=== PATIENT | female | born 1950 | race Caucasian/White ===

== ENCOUNTER → 2017-02-22 | Outpatient (CLI) | payer OTHER, MEDICARE ==
[~2017-02-22] MED LIST: ACETAMINOPHEN-1 EAC1 PO; ASPIR 8181 MG PO; CALCIUM CITRAT1 EA14 PO; CENTRUM SILVER1 EAC4 PO; EPIPEN0.3 MG/0.1 IJ; FISH OIL 1,001000 M2 PO; HYDROCODON-ACE1 EAC7 PO; LEXAPRO20 MG PO; LODINE400 M1 PO; MEDROLDOSEPACK PO; MOBIC15 MG PO; NEURONTIN 300300 M1 PO; ONDANSETRON HCL4 M2 PO; SIMVASTATIN40 MG PO; WELLBUTRIN XL150 MG PO; XANAX 0.5 MG0.5 MG PO
--- NOTE | 2017-02-23 08:10 | PAINCON ---
[address] [address] PAIN MANAGEMENT CONSULTATION Name: FLEX CORNELL Room: [facility] LAURIE Komal#: [id number] Admission: 02/22/17 Attend Phys: Alise Matos MD Discharge: Date of : 52 Report #: [id number] THIS REPORT FOR: //name// CC: Alise Shelley MD DATE OF SERVICE: 02/22/2017 FOLLOWUP COMPLAINT: "Here to get another refill of medication." FOLLOWUP HISTORY: The patient is a 66-year-old female who has been seen in the pain clinic because of lumbar radiculopathy. She has undergone epidural steroid injections and gleaned benefits from these. She returns today indicating that she has had some worsening of her pain. The weather pattern has changed. Temperature outside is in the 20s. She has found hydrocodone to be helpful. She takes this medication when she goes to work. She is about to undergo another series of work days. She would like to have her medications renewed. She did note that the last injection was helpful, but still has pain and finds that she is having some discomfort. She rates her discomfort today as a 5/10. It involves the lower portion of her back. It radiates down into the right side. She did not feel that the last injection was as helpful as the other, but still feels that she overall has greater than 50% improvement. She usually takes about 3 of the 5 mg hydrocodone tablets per day. She now has four tablets and will start work tomorrow. She is aware that opioid medications can be problematic. She is a nurse. She states that she has taken her medications as prescribed. PHYSICAL EXAMINATION: Blood pressure is 158/88, pulse 87, respiratory rate 16, room air saturation 94%. Height 5 feet 4 inches, weight 191 pounds, BMI is 32, temperature 98.6. The patient has not fallen since we saw her last. She does complain of some pain and discomfort in the lower portion of her back in the L4-L5 distribution with pain radiating down into the right leg and rating at 8/10. HEENT: Unremarkable. NECK: Nontender. CHEST: Clear. Nonlabored breathing. ABDOMEN: Protuberant. EXTREMITIES: He complains of some numbness and tingling involving the L4-L5 distribution. IMPRESSION: 1. Lumbar radiculopathy involving the lower back in the right at the L4-L5 distribution today. The patient continues to note some improvement, but still is having some numbness and tingling in the affected area. 2. Degenerative joint disease with ifbr-vf-qyan pain [place] [address] PAIN MANAGEMENT CONSULTATION Name: FLEX CORNELL Room: [facility]#: [id number] Admission: 02/22/17 Attend Phys: Alise Matos MD Discharge: Date of : 52 Report #: [id number] 3. Use of hydrocodone to help control pain. The patient would like to have the hydrocodone prescription refilled. We discussed the use of these medications for pain control. 4. Hyperlipidemia. RECOMMENDATIONS: We discussed the treatment of chronic pain with the patient. We will continue with her hydrocodone. A script for this medication has been written. She will also be given a Medrol Dosepak to help with the pain. She has not taken these in the past. Hopefully, this would help decrease the pain and discomfort, which she is experiencing at this juncture. We would like to thank you for letting us participate in her care. We hope she continues to improve. <ELECTRONICALLY SIGNED> By: Alise Matos MD 02/23/17 0810 1326 [id number]. Mynor Matos MD /[facility]
== END ==
LOC: M.PC 10:29
DX: M54.16 Radiculopathy, lumbar region (principal); M17.11 Unilateral primary osteoarthritis, right knee; R20.0 Anesthesia of skin; R20.2 Paresthesia of skin; E78.5 Hyperlipidemia, unspecified

== ENCOUNTER → 2017-04-05 | Outpatient (CLI) | payer OTHER, MEDICARE ==
--- NOTE | 2017-05-02 08:24 | PAINCON ---
[address] [address] PAIN MANAGEMENT CONSULTATION Name: FLEX CORNELL Room: [facility] M.Frantz.#: [id number] Admission: 04/05/17 Attend Phys: Alise Matos MD Discharge: Date of : 52 Report #: [id number] THIS REPORT FOR: //name// CC: Alise Shelley MD DATE OF SERVICE: 04/05/2017 FOLLOWUP COMPLAINT: Here for medication renewal. FOLLOWUP HISTORY: The patient is a 66-year-old female who has been followed in the pain clinic because of lumbar radiculopathy. Epidural steroid injections have been beneficial. She returns today indicating that her pain continues to have improve from the last injection. She in need of renewal of her hydrocodone medications and continues to work long days. She denies any complication from the medications. She is clear in her mentation. She feels that this medication helps her to remain gainfully employed. She is not having any withdrawal symptoms. She is aware of the possible complications of opioid medications, which include addiction and tolerance. She does not feel that any either of these things are going on at this juncture. She has taken her medications as prescribed. ALLERGIES: AVELOX. MEDICATIONS: Aspirin 81 mg chewable, Wellbutrin 150 mg b.i.d., calcium, vitamin D, fish oil, EpiPen auto inject p.r.n., Lexapro 20 mg, etodolac 400 mg b.i.d., gabapentin 300 mg b.i.d., hydrocodone 5/325 one p.o. every 6 hours p.r.n. pain, multivitamin, Centrum, simvastatin 40 mg. PAIN ASSESSMENT: 1. The patient is not being seen for osteoarthritis or rheumatoid arthritis. 2. Height 5 feet 4 inches, weight 189 pounds, BMI is 32.6. Blood pressure 147/82, pulse 79, respiratory rate 16, room air saturation 94%, temperature 98.2. Pain score 4/10. 3. Fall risk. The patient did fall/stumble a little bit because she missed a step, but has no problem with balance or walking. 4. The patient is not on a blood thinner. 5. The patient is not being treated for hypertension. 6. The patient is on opioid and has signed a contract with the pain clinic. She only gets her medications here. 7. Functional assessment tool. 8. Risk assessment tool. 9. Recreational drug use. Never tobacco. Does not smoke, alcoholic beverages does not imbibe [place] [address] PAIN MANAGEMENT CONSULTATION Name: FLEX CORNELL Room: [facility].#: [id number] Admission: 04/05/17 Attend Phys: Alise Matos MD Discharge: Date of : 52 Report #: [id number] PHYSICAL EXAMINATION: GENERAL: The patient is a well-developed female in no distress, appears her stated age, is oriented x 3 with move, communication affect is appropriate. HEAD, EARS, EYES, NOSE AND THROAT: Without trauma. Extraocular eye muscles intact. No nasal complaints. Hearing within normal limits. NECK: No JVD or bruits. LUNGS: Clear to auscultation. HEART: Regular rate. ABDOMEN: Nontender. MUSCULOSKELETAL: Normal alignment. No scoliosis, kyphosis, lordosis. EXTREMITIES: Lower extremities, the patient has some discomfort in the low back area and L4-L5 distribution, but much improved. Has some low back discomfort. Negative straight leg raise. IMPRESSION: 1. History of lumbar radiculopathy and lower back area with the L4-L5 distribution, improved after last injection. The patient finds that her current medication regimen of gabapentin and hydrocodone are helpful. 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 2. Degenerative joint disease with kuhx-bf-jocl pain involving her right knee. 3. Continued use of hydrocodone to help control pain and using it as prescribed with no mental changes or problems. 4. Hyperlipidemia. RECOMMENDATIONS: We discussed treatment options with the patient. We will continue with her hydrocodone and gabapentin medication. She finds that these medications continue to be beneficial. She continues to work for long periods of time. She would like to continue with this medication if had no complications. She and I discussed the possible complications, which are in the news and they include addiction and tolerance. The patient states that she is not suffering from any of these and her medications are working reasonably well. She does have her pill bottle for the hydrocodone and there are about 10-15 tablets still available, scripts for her hydrocodone and gabapentin will rewritten. <ELECTRONICALLY SIGNED> By: Alise Matos MD 05/02/17 0824 1245 1913N. Mynor Matos MD /sol[facility]
== END ==
LOC: M.PC 01:53
DX: M54.16 Radiculopathy, lumbar region (principal); M17.11 Unilateral primary osteoarthritis, right knee; E78.5 Hyperlipidemia, unspecified

== ENCOUNTER → 2017-05-17 | Outpatient (CLI) | payer OTHER, MEDICARE ==
--- NOTE | 2017-05-30 08:21 | PAINCON ---
[address] [address] PAIN MANAGEMENT CONSULTATION Name: FLEX CORNELL Room: [facility] CHAVO Komal#: [id number] Admission: 05/17/17 Attend Phys: Alise Matos MD Discharge: Date of : 51 Report #: [id number] THIS REPORT FOR: //name// CC: Alise Shelley MD DATE OF SERVICE: 05/17/2017 FOLLOWUP COMPLAINT: Here for medication renewal. FOLLOWUP HISTORY: The patient is a 66-year-old female who has been seen in the pain clinic because of lumbar radiculopathy. She has undergone epidural steroid injections in the past. She has gleaned benefits from these. At this juncture, she continues to have some discomfort and rates it as a 2/10. She did noted an increased uptake in her pain and discomfort for a few days after the epidural at the last visit. It then became less problematic and decreased too. She does work and notes if that can be problematic for her pain. 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 Sometimes she has to engage with the client help. That can make her pain more problematic. She denies any worsening of her pain since the last injection, which has been long lasting. Bowel and bladder function are normal. Overall, things are going reasonably well and she feels that the hydrocodone and gabapentin continue to be beneficial. She would like to have these medications renewed. ALLERGIES: AVELOX. MEDICATIONS: Aspirin 81 mg chewable, Wellbutrin 150 mg b.i.d., calcium, vitamin D, fish oil, EpiPen auto injector p.r.n., Lexapro 20 mg, etodolac 400 mg b.i.d., gabapentin 300 mg b.i.d., hydrocodone 5/325 one p.o. q. 6 hours p.r.n. pain, multivitamin, Centrum, simvastatin 40 mg. PAIN ASSESSMENT: 1. The patient is not being treated for osteoarthritis or rheumatoid arthritis. 2. Height 5 feet 4 inches, weight 187 pounds, BMI is 32. 3. Blood pressure 146/77, heart rate 73, respiratory rate 16, room air saturation is 97%, temperature 98 degrees. 4. Fall risk. The patient has not fallen in the last 3 months. 5. The patient is not on a blood thinner. 6. The patient is not being treated for hypertension. 7. The patient is on opioid therapy and has been receiving her medications who has contract to the pain clinic. 8. Functional assessment tool. 9. Risk assessment tool. 10. Recreational drug use. The patient denies use of recreational drugs. 11. Tobacco: The patient [place] [address] PAIN MANAGEMENT CONSULTATION Name: FLEX CORNELL Room: [facility]#: [id number] Admission: 05/17/17 Attend Phys: Alise Matos MD Discharge: Date of : 51 Report #: [id number] 12. Alcoholic beverages. The patient denies using frequent alcoholic beverages. 13. Osteoarthritis involving the right knee. PHYSICAL EXAMINATION: GENERAL: The patient is a well-developed female in no distress. Appears her stated age. She is alert and oriented x 3. Communication is effectively. HEENT: Normocephalic, atraumatic. Extraocular eye muscles intact. Hearing is within normal limits. Sclerae is nonicteric. NECK: No JVD or bruits. LUNGS: Clear to auscultation. HEART: Regular rate. ABDOMEN: Nontender. MUSCULOSKELETAL: Shows normal alignment. No history of scoliosis, kyphosis or lordosis. EXTREMITIES: No muscular problems in the upper extremities. Strength is judged to be 5/5 with symmetry, lower extremities. History of L4-L5 lumbar distribution and pain. IMPRESSION: 1. History of lumbar radiculopathy and lower back pain in the L4-L5 distribution, improved with epidural steroid injections. 2. Degenerative joint disease with aaln-km-vryx involvement in her right knee. 3. Continued use of hydrocodone to control pain with no mental changes or problems with mentation. 4. Hyperlipidemia. RECOMMENDATIONS: We discussed treatment options with the patient. At this juncture, we will continue with her current medical regimen. She did note some increased pain and discomfort after the last epidural steroid injection. This was a couple of days after the procedure was performed. There is no discomfort during the procedure nor these couple of days afterwards. She is not sure exactly why she noted an uptake in her pain and discomfort. It did revert to normal level of 2/10 after a number of days. She would like to continue with her current medical regimen of hydrocodone, gabapentin and Lodine. She will call us if she has any problem with her medications. We would like to thank you for letting us participate in her care. We hope she continues to improve. <ELECTRONICALLY SIGNED> By: Alise Matos MD 05/30/17 0821 1223 [id number]. Mynor Matos MD /[facility]
== END ==
LOC: M.PC 03:51
DX: M54.16 Radiculopathy, lumbar region (principal); M17.11 Unilateral primary osteoarthritis, right knee; E78.5 Hyperlipidemia, unspecified; Z79.891 Long term (current) use of opiate analgesic

== ENCOUNTER → 2017-06-28 | Outpatient (CLI) | payer OTHER, MEDICARE ==
--- NOTE | 2017-07-06 09:09 | PAINCON ---
[address] [address] PAIN MANAGEMENT CONSULTATION Name: FLEX CORNELL Room: [facility] CHAVO Sauceda#: [id number] Admission: 06/28/17 Attend Phys: Alise Matos MD Discharge: Date of : 51 Report #: [id number] THIS REPORT FOR: //name// CC: Alise Shelley MD DATE OF SERVICE: 06/28/2017 FOLLOWUP COMPLAINT: Still having some quite a bit of pain. It has gotten worse with the weather this spring. FOLLOWUP HISTORY: The patient is a 66-year-old female. 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 She has undergone epidural steroid injection in the past and gleaned benefits from these. At this juncture, she returns for medication renewal. Feels that her neck pain is continuing to ramp up somewhat. She is contemplating another epidural steroid injection. She rates her pain as a 4/10 today. She is noticing some numbness to the left hip, thigh and notes that this waxes and wanes according to the weather. She feels that the hydrocodone, gabapentin and Tylenol Extra Strength are helpful. She continues to be gainfully employed. Feels that her medications unable her to continue to be functional. She has had no problems with mentation. Feels that overall the medications are beneficial. She would like to proceed with another epidural steroid injection in the near future. We will petition her insurance company for that option. ALLERGIES: AVELOX. MEDICATIONS: Aspirin 81 mg chewable, Wellbutrin 150 mg b.i.d., calcium, vitamin D, fish oil, EpiPen auto injector p.r.n., Lexapro 20 mg, Etodolac 400 mg b.i.d., gabapentin 300 mg b.i.d., hydrocodone 5/325 one p.o. q. 6 hours p.r.n., multivitamin, Centrum, simvastatin 40 mg. PAIN CLINIC ASSESSMENT: 1. The patient is not being treated for rheumatoid arthritis has some osteoarthritic changes in her lower back with pain. 2. Height 5 feet 4 inches, weight 184 pounds, BMI is 31. 3. Pain score 4/10. 4. Fall risk. The patient has not fallen in the last 3 months. 5. Blood thinner. The patient is not on a blood thinner. 6. Hypertension. The patient is not being treated for hypertension. 7. Opioid therapy. The patient is receiving opioid medications from the pain clinic. Gets her medication from one source. 8. Functional assessment tool. 9. Recreational assessment tool. 10. Recreational drug use. The patient [place] [address] PAIN MANAGEMENT CONSULTATION Name: FLEX CORNELL Room: [facility]#: [id number] Admission: 06/28/17 Attend Phys: Alise Matos MD Discharge: Date of : 51 Report #: [id number] 11. Tobacco: The patient has never smoked. 12. Alcoholic beverages. The patient denies frequent use of alcoholic beverages. 13. Osteoarthritis involving her right knee. PHYSICAL EXAMINATION: GENERAL: The patient is a well-developed, well-nourished white female. She appears her stated age. She is alert and oriented x 3. Her affect is appropriate. Speech is fluent. HEENT: Extraocular eye muscles intact. Normocephalic, atraumatic. Sclerae nonicteric. Hearing is within normal limits. The Mucous membranes are moist. Lungs are clear to auscultation without rhonchi or wheezing. HEART: Regular rate. S1, S2. ABDOMEN: Nontender. MUSCULOSKELETAL: Alignment is within normal limits without significant scoliosis, kyphosis or lordosis. Lower extremity, the patient has pain and discomfort in the lower extremity with pain and discomfort radiating down in the L4-L5 area with sensory changes of numbness, tingling and weakness. IMPRESSION: 1. History of lumbar radiculopathy and lower lumbar area with sensory changes with numbness, weakness and tenderness involving the L4-L5 nerve root distribution. 2. Degenerative joint disease with eqik-li-sqyy involvement on the right knee. 3. Continued use of hydrocodone to control pain without any mental health changes or mentation problems. 4. Hyperlipidemia. RECOMMENDATIONS: We discussed treatment options with the patient. At this juncture, we will continue with her current medications. A script for hydrocodone 5 mg one p.o. t.i.d. has been written. The patient does continue to have some pain and discomfort with sensory changes in the lower extremity on the L4-L5 distribution. We will proceed with a Medrol Dosepak to take in the interim. The patient will return to the pain clinic at which time she will then undergo an epidural steroid injection to help improve her pain condition. She noticed greater than 50% improvement when she does have the lumbar epidural steroid injections. <ELECTRONICALLY SIGNED> By: Alise Matos MD 07/06/17 0909 1316 1902N. Mynor Matos MD /PMT
== END ==
LOC: M.PC 02:28
DX: M54.16 Radiculopathy, lumbar region (principal); M17.11 Unilateral primary osteoarthritis, right knee; E78.5 Hyperlipidemia, unspecified; Z88.8 Allergy status to other drugs, medicaments and biological substances

== ENCOUNTER → 2017-08-09 | Outpatient (CLI) | payer OTHER, MEDICARE ==
--- NOTE | 2017-08-23 15:18 | PAINCON ---
[facility] [address] [place] [address] PAIN MANAGEMENT CONSULTATION Name: FLEX CORNELL Room: [facility] CHAVO RodriguezTirso#: [id number] Admission: 08/09/17 Attend Phys: Alise Matos MD Discharge: Date of : 51 Report #: [id number] THIS REPORT FOR: //name// CC: Alise Shelley DATE OF SERVICE: 08/09/2017 FOLLOWUP COMPLAINT: Had some increased pain in the back and down into my leg. Had been working 10-hour days and that really makes the pain worse. 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 She has undergone epidural steroid injections. She finds that hydrocodone can be helpful. She has been working longer hours. With prolonged hours. The patient notes increased pain and discomfort down into her legs. She has been sick for the past 2-1/2 weeks. She has been treated with antibiotics. She is off of them at this juncture. Did have a Medrol Dosepak, but did not feel that is significantly improved the pain and discomfort she was experiencing in her back. At this juncture, she would like to proceed with another epidural steroid injection. Finds that [place] continues to be helpful. Continues with the etodolac b.i.d. to help with the pain. Also, feels that the gabapentin is helpful. Notes worsening of pain with walking, sitting, standing and tries to avoid lifting and bending. She has failed epidural steroid injections to be helpful. She is not having any problems with her mentation with use of these medications. MEDICATIONS: Aspirin 81 mg, Wellbutrin 150 mg b.i.d., calcium, vitamin D, fish oil, EpiPen auto injector her p.r.n., Lexapro 20 mg, etodolac 400 mg b.i.d., gabapentin 300 mg b.i.d., hydrocodone 5/325 one p.o. q. 6 hours p.r.n., multivitamin, Centrum, simvastatin,,, and 40 mg. PAIN CLINIC ASSESSMENT: 1. The patient is not being treated for rheumatoid arthritis, but does have arthritic changes in the lower back. 2. Height 5 feet 4 inches, weight 180 pounds, BMI is 31. Pain score 4, height is 5/10. 3. Fall risk. The patient has not fallen in the last 3 months. 4. Blood thinner. The patient is not on a blood thinning medication. 5. Opioid therapy. The patient receives her medications from the pain clinic. She only gets it from 1 source. 6. Functional assessment tool. 7. Recreational assessment tool. 8. Recreational drug use. The patient denies use of recreational drugs. 9. Tobacco: The patient has never smoked. 10. Alcoholic beverages. The patient denies [place] [address] PAIN MANAGEMENT CONSULTATION Name: FLEX CORNELL Room: [facility] CHAVO Sauceda#: [id number] Admission: 08/09/17 Attend Phys: Alise Matos MD Discharge: Date of : 52 Report #: [id number] 11. Osteoarthritis involving her right knee. PHYSICAL EXAMINATION: GENERAL: The patient is a well-developed white female, appears her stated age. She is alert and oriented x 3. Her speech is fluent. Her affect is appropriate. HEENT: Extraocular eye muscles intact. Normocephalic, atraumatic. Sclerae nonicteric. Hearing is within normal limits. HEART: Regular rate. S1, S2. LUNGS: Clear. ABDOMEN: Nontender. MUSCULOSKELETAL: Alignment within normal limits without significant scoliosis, kyphosis, lordosis. The patient has pain and discomfort in lower portion of her back with pain is radiating down into the right and left low back area in the L4-L5 distribution. IMPRESSION: 1. History of lumbar radiculopathy in the lower back with sensory changes, numbness, tingling and weakness involving the L4-L5 nerve roots, left and right. 2. Degenerative joint disease with olqh-wd-[id number] involvement of the right knee. Continued use of hydrocodone to control pain without mental changes or mental problems. 2. Hyperlipidemia. 3. Bronchitis -- finished up antibiotics. RECOMMENDATIONS: We discussed treatment options with the patient. Risks and benefits of an epidural steroid injection were again reviewed. The patient notes that she gets "gleans benefit from these. At this juncture, she feels that her pain has continued to improve. She would like to proceed with an epidural steroid injection. States that she is somewhat unhappy that she has to take pain medications to help control her pain, but she must. She has had no complications with their use. Able to think clearly with their use. has agreed to undergo an epidural steroid injection at the L4-L5 area. She has had this performed before. Noted some pain and discomfort and increased discomfort about 3-4 days after the last injection. There was no discomfort in the area of. She just noted that her pain level increased. Hopefully, this will not happen at this juncture, but she would like to proceed with an injection today. PROCEDURE NOTE: We have discussed the treatment with the patient. Possible complications of the procedure were known to the patient and they include infection, increased muscle soreness, headache, bleeding, paresis, worsening of pain, spinal headache. She elects to proceed. PROCEDURE NOTE: The patient was helped on the examination table. She was placed in the appropriate position. Fluoroscopy was used to identify the L4-L5 interspace. This area had been sterilely prepped [place] [address] PAIN MANAGEMENT CONSULTATION Name: JIMMYEUGENEFLEX ANTELMO Room: [facility]#: [id number] Admission: 08/09/17 Attend Phys: Alise Matos MD Discharge: Date of : 52 Report #: [id number] with 0.25% bupivacaine. A 17-gauge Tuohy with loss of resistance technique was used to advance into the midline area using fluoroscopy in anterior, posterior and lateral. This area had been infiltrated with 0.25% bupivacaine. A 17-gauge Tuohy was placed. A total of 80 mg Depo-Medrol, 40 mg triamcinolone was injected. The patient tolerated the procedure well. A total of 13 seconds fluoro time was used. The patient's pain decreased from 5-0 at the time of discharge. She will follow up in the future as needed. A script for her medications were provided for hydrocodone 5 mg 1 p.o. t.i.d. Total of 90 tablets dispensed. <ELECTRONICALLY SIGNED> By: Alise Matos MD 08/23/17 1518 1607 1938N. Mynor Matos MD /[facility]
== END | disposition home or self-care (01) ==
LOC: M.PC 01:22
DX: M54.16 Radiculopathy, lumbar region (principal); G89.29 Other chronic pain; M17.11 Unilateral primary osteoarthritis, right knee; E78.5 Hyperlipidemia, unspecified; J40 Bronchitis, not specified as acute or chronic; Z79.891 Long term (current) use of opiate analgesic; Z98.890 Other specified postprocedural states; Z79.82 Long term (current) use of aspirin; Z88.8 Allergy status to other drugs, medicaments and biological substances; Z79.899 Other long term (current) drug therapy

== ENCOUNTER → 2017-09-20 | Outpatient (CLI) | payer OTHER, MEDICARE ==
--- NOTE | 2017-09-26 14:16 | PAINCON ---
[address] [address] PAIN MANAGEMENT CONSULTATION Name: FLEX CORNELL Room: [facility] LAURIE Komal#: [id number] Admission: 09/20/17 Attend Phys: Alise Matos MD Discharge: Date of : 52 Report #: [id number] THIS REPORT FOR: //name// CC: Alise Shelley DATE OF SERVICE: 09/20/2017 FOLLOWUP COMPLAINT: Here for medication renewal. Still had pain in spite of the last injection. FOLLOWUP HISTORY: The patient is a 66-year-old female who has a history of lumbar radiculopathy. She has undergone epidural steroid injections in the past and gleaned benefit from these. She returns today indicating that her pain still is somewhat problematic. She rates it as 4/10. She did not receive as much benefit from the last injection as she has in the past times. She rates her pain as 4/10 and would like to have her medications renewed. She had no complications from the procedure. No problem with her bowel or bladder function. Feels that her medications continue to be helpful. Feels her sensorium is clear. 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 She has not fallen since we saw her last. ALLERGIES: AVELOX. CURRENT MEDICATIONS: Aspirin 81 mg chewable, Wellbutrin 150 mg b.i.d., calcium, vitamin D, fish oil, EpiPen auto injector p.r.n., Lexapro 20 mg, etodolac 400 mg b.i.d., gabapentin 300 mg b.i.d., hydrocodone 5/325 one p.o. q.4-6h. p.r.n., multivitamin, Centrum, simvastatin. PAIN CLINIC ASSESSMENT: 1. The patient has not been treated for rheumatoid arthritis, has some osteoarthritic changes in her lower back. 2. Height 5 feet 4 inches, weight 183 pounds, BMI is 31.4. 3. Vital signs: Blood pressure 138/79, heart rate 77, respiratory rate 16, room air saturation 94%, temperature 98.4. 4. Pain intensity 06/05. 5. Fall risk. The patient has not fallen in the last 3 months. 6. Blood thinners. The patient is not on a blood thinning medication. 7. Hypertension. The patient is not being treated for hypertension. 8. Opioid therapy. The patient is receiving opioid medications from the pain clinic. Gets her medications for pain from one source. 9. Functional assessment tool. 10. Recreational assessment tool. 11. Recreational drug use. The patient denies use of recreational drugs. 12. Tobacco: The patient has never smoked. 13. Alcohol: The patient denies frequent [place] [address] PAIN MANAGEMENT CONSULTATION Name: FLEX CORNELL ANTELMO Room: [facility]#: [id number] Admission: 09/20/17 Attend Phys: Alise Matos MD Discharge: Date of : 52 Report #: [id number] PHYSICAL EXAMINATION: GENERAL: The patient is a well-developed, well-nourished white female. She appears her stated age. She is alert and oriented x 3. Her affect is appropriate. Speech is fluent. HEENT: Normocephalic, atraumatic. Extraocular eye muscles intact. Sclerae nonicteric. Hearing is within normal limits. Mucous membranes are moist. NECK: Without adenopathy or JVD. HEART: Regular rate. S1, S2. LUNGS: Clear to auscultation without rhonchi or wheezing. ABDOMEN: Nontender. MUSCULOSKELETAL: Within normal limits without significant scoliosis, kyphosis or lordosis. Lower extremity strength is judged to be 5/5 for the major muscle groups. The patient has some pain and discomfort with pain radiating down into the L4-L5 area with some sensory changes of numbness and tingling. IMPRESSION: 1. History of lumbar radiculopathy and lower lumbar area with sensory changes, numbness, tingling involving the L4-L5 area. 2. Degenerative joint disease with yjpb-uv-texx involvement of the right knee. 3. Chronic pain, continues to use hydrocodone. 4. Hyperlipidemia. RECOMMENDATIONS: We discussed treatment options with the patient. At this juncture, we will renew her medication. She declines an epidural steroid injection at this juncture. She may consider one in the future should her pain become more problematic. She finds that the hydrocodone, etodolac and gabapentin are helpful. We will renew these medications. The patient will follow up in the pain clinic as needed. A script for hydrocodone one tablet 5/325 p.o. q.4-6h., total of 90 tablets written, gabapentin 300 mg 1 p.o. t.i.d. has been dispensed. The patient will call us if she has any problems with her medications. <ELECTRONICALLY SIGNED> By: Alise Matos MD 09/26/17 1416 [id number]. Mnyor Matos MD /PMT
== END ==
LOC: M.PC 09-11 11:00
DX: M54.16 Radiculopathy, lumbar region (principal); M17.11 Unilateral primary osteoarthritis, right knee; E78.5 Hyperlipidemia, unspecified; G89.29 Other chronic pain; Z79.899 Other long term (current) drug therapy

== ENCOUNTER → 2017-11-01 | Outpatient (CLI) | payer OTHER, MEDICARE ==
--- NOTE | 2017-11-02 17:38 | PAINCON ---
[address] [address] PAIN MANAGEMENT CONSULTATION Name: FLEX CORNELL Room: [facility] LAURIE MichaelTirso#: [id number] Admission: 11/01/17 Attend Phys: Alise Matos MD Discharge: Date of : 52 Report #: [id number] THIS REPORT FOR: //name// CC: Alise Shelley DATE OF SERVICE: 11/01/2017 FOLLOWUP COMPLAINT: Here for medication renewal. The pain was really bad a couple of weeks ago. It has gotten a little bit better now. FOLLOWUP HISTORY: The patient is a 66-year-old female who has been followed in the pain clinic because of chronic pain secondary to lumbar radiculopathy. She noted about 2 weeks ago some worsening of her pain. She states the pain was severe. The pain was so bad she is almost went to the Emergency Room. This caused her to cry. Overall, things have started to improve somewhat. Rates her pain as 4-5 at this juncture. Denies any trauma, denies any new activities associated with the increased pain on a couple of weeks ago. Overall, things are going reasonably well. She has taken her medication as prescribed. Finds that she took etodolac, it may not be as effective as she would like. States that she has been taking this medication for quite some time. She is open to trying a new medication of an antiinflammatory in nature to note its efficacy. ALLERGIES: AVELOX. CURRENT MEDICATIONS: Aspirin 81 mg chewable, Wellbutrin 150 mg b.i.d., calcium, vitamin D, fish oil, EpiPen auto injector p.r.n., Lexapro 20 mg, etodolac 400 mg b.i.d., gabapentin 300 mg b.i.d., hydrocodone 5/325 every 4-6 hours, multivitamin, Centrum, simvastatin. PAIN CLINIC ASSESSMENT: 1. The patient is not being treated for rheumatoid arthritis, has some osteoarthritic changes in the lower back. 2. Height 5 feet 4 inches, weight 183 pounds, BMI is 31.5. 3. Vital signs: Blood pressure 148/75, heart rate 72, respiratory rate 16, room air saturation 97%, temperature 98.4. Pain intensity 5-610. 4. Fall risk. The patient has not fallen in the last 3 months. 5. Blood thinners. The patient is not on a blood thinning medication. 6. Hypertension. The patient is not being treated for hypertension. 7. Opioid therapy. The patient is receiving her medications only from one source, the pain clinic. 8. Functional assessment tool. 9. Recreational drug use. 10. Tobacco: The patient denies use of tobacco. 11. Alcohol: The patient [place] [address] PAIN MANAGEMENT CONSULTATION Name: FLEX CORNELL ANTELMO Room: [facility]#: [id number] Admission: 11/01/17 Attend Phys: Alise Matos MD Discharge: Date of : 51 Report #: [id number] PHYSICAL EXAMINATION: GENERAL: The patient is a well-developed, well-nourished white female. She appears her stated age. She is alert and oriented x 3. Her affect is appropriate. Speech is fluent. HEENT: Normocephalic, atraumatic. Extraocular eye muscles intact. Sclerae nonicteric. Mucous membranes is moist. Hearing is within normal limits. NECK: Without adenopathy or JVD. Good range of motion. HEART: Regular rate. S1, S2. LUNGS: Clear to auscultation without rhonchi or wheezing. ABDOMEN: Nontender. MUSCULOSKELETAL: Without significant scoliosis, kyphosis or lordosis. The patient has some pain and discomfort in the right lower portion of her back. Has muscle strength in the lower extremity, judged to be 5/5 for the major muscle groups. The patient has some pain and discomfort in the L4-L5 distribution. IMPRESSION: 1. History of lumbar radiculopathy, L4-L5 area with sensory changes, some increased pain over the last few weeks. 2. Degenerative joint disease, qjak-au-qhxi involvement on the right knee. 3. Chronic pain, continues to use hydrocodone. 4. Hyperlipidemia. RECOMMENDATIONS: We discussed treatment options with the patient. Risks and benefits of opioid medications were again discussed. Possible complications of these medications were discussed. They include possibility of decreased efficacy as well as decreased pain relief secondary to development of tolerance. At this juncture, she feels that things are going reasonably well. She would like to have her nonsteroidal change from etodolac. We will try Mobic 15 mg 1 p.o. daily and note its efficacy. We will also give the patient a Medrol Dosepak. She will take a few of the steroid tablets should her back becomes really problematic. She was unable to go to work a few days because of the pain, which was so great. We would like to thank you for letting us participate in her care. We hope she continues to improve. <ELECTRONICALLY SIGNED> By: Alise Matos MD 11/02/17 1738 [id number]. Mynor Matos MD /CARIN
== END ==
LOC: M.PC 04:38
DX: M54.16 Radiculopathy, lumbar region (principal); M17.11 Unilateral primary osteoarthritis, right knee; G89.29 Other chronic pain; E78.5 Hyperlipidemia, unspecified; Z79.899 Other long term (current) drug therapy

== ENCOUNTER → 2017-12-13 | Outpatient (CLI) | payer OTHER, MEDICARE ==
--- NOTE | 2018-01-09 16:08 | PAINCON ---
[address] [address] PAIN MANAGEMENT CONSULTATION Name: FLEX CORNELL Room: [facility] CHAVO Calvin.#: [id number] Admission: 12/13/17 Attend Phys: Alise Matos MD Discharge: Date of : 51 Report #: [id number] THIS REPORT FOR: //name// CC: Alise Shelley MD DATE OF SERVICE: 12/13/2017 CHIEF COMPLAINT: Here for medications and things are going okay, but I am still having some back pain. FOLLOWUP HISTORY: The patient is a 67-year-old female who has been followed in the pain clinic because of chronic pain involving her low back. She has undergone epidural steroid injections in the past. At this juncture, she feels that things are going reasonably well. She did try a Medrol Dosepak and felt that that was somewhat helpful. She now finds Mobic more beneficial as a nonsteroidal anti-inflammatory medication. She would like to have a 90-day prescription of this medication. She has changed and is no longer using the Lodine. She did notice an improvement in the Mobic that was not present while using the Lodine. She rates her pain as a 3-4. She has taken the medication as prescribed. She is not having any complications. She is able to think clearly with use of medications. She is not having any problems with the gabapentin. Takes her medications as prescribed. Keeps her medications in a guarded area. She overall feels that things are a bit better. ALLERGIES: AVELOX. CURRENT MEDICATIONS: Aspirin 81 mg, Wellbutrin 150 mg b.i.d., calcium, vitamin D, fish oil, EpiPen auto injector p.r.n., Lexapro 20 mg, Mobic 15 mg, gabapentin 300 mg b.i.d., hydrocodone 5/325 q.4-6 hours, multivitamin, Centrum, simvastatin. PAIN CLINIC ASSESSMENT: 1. The patient does have osteoarthritic changes with fwam-hu-njgt in her right knee. 2. Height 5 feet 4 inches, weight 183 pounds, BMI is 31.5. 3. Vital signs: Blood pressure 135/86, heart rate 84, respiratory rate 16, room air saturation 96%, temperature 98.4. 4. Pain intensity 3-4/10. 5. Fall history: The patient has not fallen in the last 3 months. 6. Blood thinner. The patient is not on a blood thinning medication. 7. Hypertension. The patient is not being treated for hypertension. 8. Opioid therapy. The patient receives her medications from 1 source, pain clinic. 9. Functional assessment too low [place] [address] PAIN MANAGEMENT CONSULTATION Name: FLEX CORNELL Room: [facility]#: [id number] Admission: 12/13/17 Attend Phys: Alise Matos MD Discharge: Date of : 51 Report #: [id number] 10. Recreational use. The patient denies recreational drug use. 11. Tobacco. The patient denies use of tobacco. 12. Alcohol: The patient denies use of alcohol. PHYSICAL EXAMINATION: GENERAL: The patient is a well-developed, well-nourished white female, appears her stated age. She is alert and oriented x 3. Her affect is appropriate. Speech is fluent. HEENT: Normocephalic, atraumatic. Extraocular muscles intact. Sclerae nonicteric. Mucous membranes are moist. Hearing is within normal limits. NECK: Without adenopathy or JVD. Good range of motion. HEART: Regular rate. S1, S2. LUNGS: Clear to auscultation without rhonchi or wheezing. ABDOMEN: Nontender. MUSCULOSKELETAL: Without significant scoliosis, kyphosis, or lordosis. The patient does have some pain in the lower portion of her back and in the right lower portion of her back. Muscle strength in the lower extremity, judged to be 5/5 for the major muscle groups. The patient has had a history of pain and discomfort with radicular pain in the L4-L5 distribution and less problematic today. ASSESSMENT: 1. History of lumbar radiculopathy, L4-L5 with sensory changes in the past, better at this juncture. 2. Degenerative joint disease, uguj-xq-ifdu involvement of the right knee. 3. Chronic pain. Continues to use hydrocodone. 4. Hyperlipidemia. RECOMMENDATIONS: We discussed treatment options with the patient. Risks and benefits of her medications were discussed. We explained that opioid medications can be helpful. Problems with opioid medications is one of tolerance. One can require more and more medication to get the same result. 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 States that she has taken her medication as prescribed. She finds that the Mobic is helpful, [place], remains beneficial, and gabapentin is helpful as well. She would like to have her medications renewed. A script for Mobic 90-day supply has been written. A script for gabapentin 90-day supply, and [place] has been rewritten for the patient as well. She will follow up in the future. We would like to thank you for letting us participate in her care. We hope she continues to improve. <ELECTRONICALLY SIGNED> By: Alise Matos MD 01/09/18 1608 [id number] [id number]. Mynor Matos MD /[facility]
== END ==
LOC: M.PC 05:28
DX: M54.16 Radiculopathy, lumbar region (principal); M17.11 Unilateral primary osteoarthritis, right knee; G89.29 Other chronic pain; E78.5 Hyperlipidemia, unspecified; Z79.899 Other long term (current) drug therapy

== ENCOUNTER → 2018-01-24 | Outpatient (CLI) | payer OTHER, MEDICARE ==
--- NOTE | ~2018-01-24 | PAINCON ---
[address] [address] PAIN MANAGEMENT CONSULTATION Name: FLEX CORNELL Room: [facility] M.Frantz.#: [id number] Admission: 01/24/18 Attend Phys: Alise Matos MD Discharge: Date of : 51 Report #: [id number] THIS REPORT FOR: //name// CC: Alise Shelley MD DATE OF SERVICE: 01/24/2018 FOLLOWUP HISTORY: The patient is a 67-year-old female who has been followed in the Pain Clinic because of chronic back pain. She has undergone epidural steroid injection in the past. She suffered a fall this winter. The patient states she was walking outside and before she knew it, she was looking up. Has had some increased pain on the right side, which is on the side in which she fell. Denied fracture or anything. Also, notes some increased discomfort on the left side as well. She rates her pain as a 7-8 at this juncture. Denies any change in bowel or bladder function. Feels overall that her medications are helpful. Declines a Medrol Dosepak at this juncture. Feels that the hydrocodone and meloxicam both continue to be efficacious and would like to continue their use. ALLERGIES: AVELOX. CURRENT MEDICATIONS: Aspirin 81 mg, Wellbutrin 150 mg b.i.d., calcium, vitamin D, fish oil, EpiPen auto injector p.r.n., Lexapro 20 mg, Mobic 15 mg, gabapentin 300 mg b.i.d., hydrocodone 5/325 one p.o. q.4-6h., multivitamin, Centrum, and simvastatin. PAIN CLINIC ASSESSMENT/PQRS: 1. The patient does have some osteoarthritic changes with itst-zg-ntng pain in her right knee. The patient is not being treated for rheumatoid arthritis. 2. Height 5 feet 4 inches, weight 182 pounds, BMI is 31. 3. Vital signs: Blood pressure 147/90, heart rate 76, respiratory rate 18, room air saturation 94%, and temperature 98.4. 4. Pain intensity, 7-8/10, up from the usual 3-4 since the patient fell. 5. Fall history: The patient fell on the ice few days ago. 6. Blood thinner. The patient is not on a blood thinning medication. 7. Hypertension. The patient is not being treated for hypertension. 8. Opioid therapy greater than 6 weeks. The patient receives her medications from one source, the Pain Clinic. 9. Recreational drug use. The patient denies use of recreational drugs. 10. Tobacco: The patient denies use of tobacco. 11. Alcohol: The patient denies use of alcohol. PHYSICAL EXAMINATION: GENERAL: The patient is a well-developed, well-[place] [address] PAIN MANAGEMENT CONSULTATION Name: JIMMYFLEX KNIGHT ANTELMO [id number] Admission: 01/24/18 Attend Phys: Alise Matos MD Discharge: Date of : 52 Report #: [id number] her stated age. She is alert and oriented x 3. Her affect is appropriate. Speech is fluent. HEENT: Normocephalic and atraumatic. Extraocular eye muscles intact. Sclerae nonicteric. Mucous membranes are moist. NECK: Without adenopathy or JVD. Good range of motion. HEART: Regular rate. S1, S2. LUNGS: Clear to auscultation without rhonchi or rales. ABDOMEN: Nontender. MUSCULOSKELETAL: Without significant scoliosis, kyphosis or lordosis. The patient has some pain and discomfort on the right side and low back area, which she fell on the ice. Also notes some increased pain in the left hip area. Muscle strength in the upper extremity judged to be 5/5 for the major muscle groups. Muscle strength in the lower extremities 5-/5 with some pain and discomfort in the left hip area, in the L4-L5 area as well. IMPRESSION: 1. Lumbar radiculopathy, L4-L5 with sensory changes in the past and with improvement with epidural steroid injection in the past. 2. Degenerative joint disease, yokb-db-ontl involvement of the right knee. 3. Chronic pain. 4. Continued use of hydrocodone for pain. 5. Hyperlipidemia. RECOMMENDATIONS: We discussed treatment options with the patient. We will continue with her current medications of gabapentin 300 mg t.i.d., Mobic 15 mg daily, hydrocodone 5/325 one q.4-6h. p.r.n. pain. A total of 2 months of medication have been written. The patient will continue with her medications. She will call us if she should need. She was given the option of trying a Medrol Dosepak to help with the pain and discomfort as well as soreness. At this juncture, she declines it; might consider in the future. A script for her medications have been written. She will call us if she has any concerns. We would like to thank you for letting us participate in her care. We hope she continues to improve. By: [id number]. Mynor Matos MD /nt
== END ==
LOC: M.PC 03:46
DX: M54.16 Radiculopathy, lumbar region (principal); M17.11 Unilateral primary osteoarthritis, right knee; E78.5 Hyperlipidemia, unspecified; Z79.899 Other long term (current) drug therapy; W00.0XXD Fall on same level due to ice and snow, subsequent encounter

== ENCOUNTER → 2018-03-07 | Outpatient (CLI) | payer OTHER, MEDICARE ==
--- NOTE | ~2018-03-07 | PAINCON ---
[address] [address] PAIN MANAGEMENT CONSULTATION Name: FLEX CORNELL Room: [facility] LAURIE Komal#: [id number] Admission: 03/07/18 Attend Phys: Alise Matos MD Discharge: Date of : 52 Report #: [id number] THIS REPORT FOR: //name// CC: Dr. Leni Shelley DATE OF SERVICE: 03/07/2018 CHIEF COMPLAINT: Low back pain with pain down the legs. 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 She is contemplating her next move. At this juncture, she might consider working in the school system. She is not sure what she would like to do at this juncture. She has pain and discomfort, which radiates down into her legs. She has had epidural steroid injections and found benefit from these. At this juncture, she feels that her pain is working reasonably well. Rates her pain as a 3-4/10. Denies any new problems. Feels that the hydrocodone and Meloxicam continued to be efficacious. She has returned today for renewal of her medications. ALLERGIES: AVELOX. CURRENT MEDICATIONS: Aspirin 81 mg, Wellbutrin 150 mg b.i.d., calcium, vitamin D, fish oil, EpiPen auto injector p.r.n., Lexapro 20 mg, Mobic 15 mg, gabapentin 300 mg, hydrocodone 5/325 one p.o. q.4-6 hours, multivitamins, Centrum, simvastatin. PAIN CLINIC ASSESSMENT/PQRS: 1. The patient does have some arthritic changes with kqwl-vd-icjw pain in her right knee. Also, has some pain in the low back area. The patient is not being treated for rheumatoid arthritis. 2. Height 5 feet 4 inches, weight 180 pounds, BMI is 31. 3. Vital signs: Blood pressure 125/76, heart rate 78, respiratory rate 16, room air saturation 96%, temperature 98.7. 4. Pain intensity is 4-5/10 5. Fall history: The patient has not fallen in the last 3 months. 6. Blood thinner. The patient is not on a blood thinning medication. 7. Hypertension. The patient has not been treated for hypertension. 8. Opioid greater than 6 weeks. The patient receives her medications from one source pain clinic. 9. Risk assessment tool, low for opioid use. 10. Functional assessment tool. 11. Recreational drug use. The patient denies use of recreational drugs. 12. Tobacco: The [place] [address] PAIN MANAGEMENT CONSULTATION Name: JIMMYEUGENEFLEX RODRIGES [facility] [id number] Admission: 03/07/18 Attend Phys: Alise Matos MD Discharge: Date of : 52 Report #: [id number] 13. Alcohol: The patient denies use of alcoholic beverages. PHYSICAL EXAMINATION: GENERAL: The patient is a well-developed, well-nourished white female. Appears her stated age. She is alert and oriented x 3. Her affect is appropriate. Speech is fluent. HEENT: Normocephalic, atraumatic. Extraocular eye muscles intact. Sclerae nonicteric. Mucous membranes are moist. NECK: Without adenopathy or JVD. HEART: Regular rate. S1, S2. LUNGS: Clear to auscultation without rhonchi or rales. ABDOMEN: Nontender. Bowel sounds present. MUSCULOSKELETAL: Without significant scoliosis, kyphosis or lordosis. The patient has some pain and discomfort in the right side with pain that radiates down into her back. She had some pain in the right and left hip areas. Muscle strength in the lower extremity, 5-/5 for the major muscle groups. Upper extremity muscle strength 5/5 for the major muscle groups. IMPRESSION: 1. Lumbar radiculopathy in the L4-L5 sensory distribution. Improved in the past with epidural steroid injections. 2. Degenerative joint disease with eiyu-bu-uplg involvement of the right knee. 3. Chronic pain. 4. Continued use of hydrocodone for pain. 5. Hyperlipidemia. RECOMMENDATIONS: We discussed treatment options with the patient. At this juncture, she feels that her medications are working reasonably well. She would like to continue with the medication use, had no complications from the use of the gabapentin with her stomach. She continues to find gabapentin helpful and received that from her primary physician. A script for hydrocodone 5/325 one p.o. q.4-6 hours as well as Mobic 15 mg daily has been written. We would like to thank you for letting us participate in her care. We hope she continues to improve. By: [id number]. Mynor Matos MD /solitario
== END ==
LOC: M.PC 10:40
DX: M54.16 Radiculopathy, lumbar region (principal); M17.11 Unilateral primary osteoarthritis, right knee; G89.29 Other chronic pain; E78.5 Hyperlipidemia, unspecified; Z79.899 Other long term (current) drug therapy

== ENCOUNTER → 2018-04-11 | Outpatient (CLI) | payer OTHER ==
--- NOTE | 2018-04-16 09:15 | PAINCON ---
[address] [address] PAIN MANAGEMENT CONSULTATION Name: FLEX CORNELL Room: [facility] Komal#: [id number] Admission: 04/11/18 Attend Phys: Alise Matos MD Discharge: Date of : 52 Report #: [id number] THIS REPORT FOR: //name// CC: Alise Shelley DATE OF SERVICE: 04/11/2018 FOLLOWUP COMPLAINT: "Here for medications and I have got a new job, I am going to start at [employer]." HISTORY: The patient is a 67-year-old female who has been followed in the pain clinic because of chronic back pain. She has undergone epidural steroid injections in the past. Continues to have low back pain. Feels that her current use of hydrocodone and Meloxicam are beneficial. She is somewhat excited that she has a new job offer. She has some problems with trying to decide which job to take. She is going to take the one at [employer]. 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 [employer] has closed. She recently after taking the job at 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 She will take over the job at [employer] and hopefully things will work out for the best. ALLERGIES: AVELOX. CURRENT MEDICATIONS: Aspirin 81 mg, Wellbutrin 150 mg b.i.d., calcium, vitamin D, fish oil, EpiPen auto injector p.r.n., Lexapro 20 mg, Mobic 15 mg, gabapentin 300 mg, hydrocodone 5/325 one p.o. q.4-6 hours, multivitamin, Synthroid, simvastatin. PAIN CLINIC ASSESSMENT AND PQRS: 1. The patient does have some arthritic changes on kvam-vy-wvnb pain in her right knee. Also, has some pain in the low back area. The patient is not being treated for rheumatoid arthritis. 2. Height 5 feet 4 inches, weight 181 pounds, BMI is 31. 3. Vital signs: Blood pressure 125/76, heart rate is 79, respiratory rate 16, room air saturation is 93%, temperature 98.3. Pain intensity 0/10 today. 4. Pain intensity was 0/10. 5. Fall history: The patient has not fallen in the last 3 months. 6. Blood thinner. The patient is not on a blood thinning medication. 7. Hypertension. The patient is not being treated for hypertension. 8. Opioids greater than 6 weeks. The patient receives medications from one source, the pain clinic. 9. Risk assessment tool, low for opioid use. 10. Functional assessment tool. 11. Recreational drug use. The patient denies use of recreational drugs. 12. Tobacco: The [place] [address] PAIN MANAGEMENT CONSULTATION Name: ROSASandraFLEX KNIGHT ANTELMO [facility] [id number] Admission: 04/11/18 Attend Phys: Alise Matos MD Discharge: Date of : 52 Report #: [id number] 13. Alcohol: The patient denies use of alcoholic beverages. PHYSICAL EXAMINATION: GENERAL: The patient is a well-developed, well-nourished white female. Appears her stated age. She is alert and oriented x 3. Her affect is appropriate. Speech is fluent. HEENT: Normocephalic, atraumatic. Extraocular eye muscles intact. Sclerae nonicteric. Mucous membranes are moist. NECK: Without adenopathy or JVD. HEART: Regular rate. S1, S2. LUNGS: Clear to auscultation without rhonchi or rales. ABDOMEN: Nontender. Bowel sounds present. MUSCULOSKELETAL: Without significant scoliosis, kyphosis or lordosis. The patient has some pain and discomfort in the right side that radiates down into her back. Also, has some right as well as left hip pain. Has pain with wovr-go-lpyl involvement of her knee on the right side. Major muscle strength to the upper extremities judged to be 5-/5 for the major muscle groups and 5-/5 for the lower extremity. IMPRESSION: 1. Lumbar radiculopathy history in the L4-L5 sensory distribution improved with epidural steroid injection in the past. 2. Degenerative joint disease with ovah-hu-snka involvement of the right knee. 3. Chronic back pain. 4. Continued use of hydrocodone for pain. 5. Hyperlipidemia. RECOMMENDATIONS: We discussed treatment options with the patient. The patient will continue with her current medications. A script for the hydrocodone has been rewritten. The patient is somewhat excited about her new job at [employer]. Hopefully, things will work out very well. She will call us if she has any concerns about her medications. A script for her medications have been written. We would like to thank you for letting us participate in her care. We hope she continues to improve. <ELECTRONICALLY SIGNED> By: Alise Matos MD 04/16/18 [id number]. Mynor Matos MD /PMT
== END ==
LOC: M.PC 05:27
DX: M17.11 Unilateral primary osteoarthritis, right knee (principal); G89.29 Other chronic pain; E78.5 Hyperlipidemia, unspecified; M54.16 Radiculopathy, lumbar region

== ENCOUNTER → 2018-05-21 | Outpatient (CLI) | payer OTHER ==
--- NOTE | ~2018-05-21 | PAINCON ---
[address] [address] PAIN MANAGEMENT CONSULTATION Name: FLEX CORNELL Room: [facility].Haven#: [id number] Admission: 05/21/18 Attend Phys: Alise Matos MD Discharge: Date of : 51 Report #: [id number] THIS REPORT FOR: //name// CC: lAise Shelley DATE OF SERVICE: 05/21/2018 CHIEF COMPLAINT: Chronic low back pain, here for medication renewal. HISTORY: The patient is a 67-year-old female who has been seen in the pain clinic because of chronic lumbar pain. She has undergone epidural steroid injections. At this juncture, she feels that the use of hydrocodone and meloxicam are beneficial. She has started her new job at [employer] down on the [employer]. Overall, she feels that things are going reasonably well. She continues to have some sharp pain that comes and goes. Her pain medications keep her from being miserable. She feels that she is able to tolerate it. She rates her pain as a 2/10. She notes that pain is worse with cold temperatures, walking, sitting, standing. Notes that heat and cold could be beneficial as well. She would like to have her medications renewed. ALLERGIES: AVELOX. CURRENT MEDICATIONS: Aspirin 81 mg, Wellbutrin 150 mg b.i.d., calcium, vitamin D, fish oil, EpiPen auto injector p.r.n., Lexapro 20 mg, Mobic 15 mg, gabapentin 300 mg, hydrocodone 5/325 one p.o. q.4-6 hours, multivitamin, Synthroid, simvastatin. PAIN CLINIC ASSESSMENT AND PQRS: 1. The patient does have some hegh-be-ncar pain in her right knee. Does have some pain in her low back area. The patient is not being treated for rheumatoid arthritis. 2. Height 5 feet 4 inches, weight 179 pounds, BMI is 30. 3. Vital signs: Blood pressure 129/77, heart rate 95, respiratory rate 16, room air saturation 95%, temperature 98.5. 4. Pain intensity 04/07. 5. Fall history: The patient has not fallen in the last 3 months. 6. Blood thinner. The patient is not on a blood thinning medication. 7. Hypertension. The patient is not being treated for hypertension. 8. Opioids greater than 6 weeks. The patient has received medication from one source, pain clinic. 9. Risk assessment tool, low for opioid use. 10. Functional assessment tool. 11. Recreational drug use. The patient denies use of recreational drugs. 12. Tobacco: The patient denies use of tobacco. 13. Alcohol: The patient [place] [address] PAIN MANAGEMENT CONSULTATION Name: FLEX CORNELL Room: [facility]#: [id number] Admission: 05/21/18 Attend Phys: Alise Matos MD Discharge: Date of : 51 Report #: [id number] PHYSICAL EXAMINATION: GENERAL: The patient is a well-developed, well-nourished white female. Appears her stated age. She is alert and oriented x 3. Her affect is appropriate. Speech is fluent. HEENT: Normocephalic, atraumatic. Extraocular eye muscles intact. Sclerae nonicteric. Mucous membranes are moist. NECK: Without JVD or adenopathy. HEART: Regular rate. S1, S2. LUNGS: Clear to auscultation without rhonchi or rales. ABDOMEN: Nontender. Bowel sounds present. MUSCULOSKELETAL: Without significant scoliosis, kyphosis or lordosis. The patient has some pain and discomfort in the right side with pain radiating down into her back. Has pain in the left hip. She has hbnl-ka-mquq involving her knee. IMPRESSION: 1. Lumbar radiculopathy history at L4-L5 with sensory changes. 2. Degenerative joint disease with rbgz-ku-nnfp involving the right knee. 3. Chronic back pain. 4. Continued use of complex medical management to help control the pain. 5. Hyperlipidemia. RECOMMENDATIONS: We discussed treatment options with the patient. Risks and benefits of an epidural steroid injection were again reviewed. At this juncture, the patient feels that her medications are going reasonably well with oral medications. We will renew her script. She will call us if she has any concerns. A script for her medications of meloxicam 15 mg, hydrocodone 5/325 one p.o. t.i.d. have all been rewritten. By: [id number]. Mynor Matos MD /CARIN
== END ==
LOC: M.PC 04:46
DX: M54.16 Radiculopathy, lumbar region (principal); M17.11 Unilateral primary osteoarthritis, right knee; E78.5 Hyperlipidemia, unspecified; Z79.899 Other long term (current) drug therapy

== ENCOUNTER → 2018-06-25 | Outpatient (CLI) | payer OTHER ==
--- NOTE | ~2018-06-25 | PAINCON ---
[address] [address] PAIN MANAGEMENT CONSULTATION Name: FLEX CORNELL Room: [facility] LAURIE Komal#: [id number] Admission: 06/25/18 Attend Phys: Alise Matos MD Discharge: Date of : 51 Report #: [id number] THIS REPORT FOR: //name// CC: Alise Shelley MD DATE OF SERVICE: 06/25/2018 CHIEF COMPLAINT: Here for my medications and things are going pretty well. HISTORY OF PRESENT ILLNESS: The patient is a 67-year-old female. 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 She feels that things are going reasonably well. She feels that her medications are helpful. Feels that sometimes she overdoes it. May engage in lifting and bending that exacerbates her back pain. Overall, things are going relatively well. She rates her pain as 4-5 at this point. She is taking the medication as prescribed. Having no side effects. Has returned today for renewal of medication. ALLERGIES: AVELOX. CURRENT MEDICATIONS: Aspirin 81 mg, Wellbutrin 150 mg b.i.d., calcium, vitamin D, fish oil, EpiPen auto injector p.r.n., Lexapro 20 mg, Mobic 15 mg, gabapentin 300 mg, hydrocodone 5/325 one p.o. 4-6 hours to multivitamins, Synthroid, simvastatin. PAIN CLINIC ASSESSMENT/PQRS: The patient does have some cwju-fk-ccod pain in her right knee. Does have pain in her low back area. The patient is not being treated for rheumatoid arthritis. VITAL SIGNS: Height 5 feet 4 inches, weight is 179 pounds, BMI is 31. Vital Signs: Blood pressure 142/87, heart rate 76, respiratory rate 16, room air saturation 96%, temperature 98.3. Pain intensity 4-5/10. FALL HISTORY: 1. The patient has not fallen in the last 3 months. 2. Blood thinner. The patient is not on a blood thinning medication. 3. Hypertension. The patient is not being treated for hypertension. 4. Opioids greater than 6 weeks. The patient receives her medications from one source, the pain clinic. 5. Functional assessment tool is low for opioid use. 6. Risk assessment tool. 7. Recreational drug use. The patient denies use of recreational drugs. 8. Tobacco: The patient denies use of tobacco. 9. Alcohol: The patient denies use [place] [address] PAIN MANAGEMENT CONSULTATION Name: FLEX CORNELL ANTELMO Room: [facility]#: [id number] Admission: 06/25/18 Attend Phys: Alise Matos MD Discharge: Date of : 51 Report #: [id number] PHYSICAL EXAMINATION: GENERAL: The patient is a well-developed, well-nourished white female, appears her stated age. She is alert and oriented x 3. Her affect is appropriate. Speech is fluent. HEENT: Normocephalic, atraumatic. Extraocular eye muscles intact. Sclerae nonicteric. Mucous membranes are moist. NECK: Without adenopathy or JVD. HEART: Regular rate. S1, S2. LUNGS: Clear to auscultation without rales. ABDOMEN: Nontender. Bowel sounds present. MUSCULOSKELETAL: Without significant scoliosis, kyphosis or lordosis. The patient has some pain and discomfort in the right side. Pain radiates down into her back. Has some left hip pain as well as bone and unbq-kq-dixb involvement on her knee. IMPRESSION: 1. Lumbar radiculopathy, history of L4-L5 sensory changes. 2. Degenerative joint disease with xbru-mj-qrxm involvement of the right knee. 3. Chronic back pain. 4. Continue use of complex medical management to help control pain. 5. Hyperlipidemia. RECOMMENDATIONS: We discussed treatment options with the patient. Overall, she feels that things are going well. She is aware that opioid medications can be problematic snf. She is aware that the patient's chronic use of medication can become less effective secondary to development of tolerance. She feels overall things are going well, I would like to continue her medication and a script for meloxicam 15 mg 1 p.o. daily has been written. She also will continue with hydrocodone 5/325 one p.o. 3 times daily. By: [id number]. Mynor Matos MD /CARIN
== END ==
LOC: M.PC 04:51
DX: G89.29 Other chronic pain (principal); M47.26 Other spondylosis with radiculopathy, lumbar region; E78.5 Hyperlipidemia, unspecified; Z88.8 Allergy status to other drugs, medicaments and biological substances; Z79.899 Other long term (current) drug therapy; Z79.891 Long term (current) use of opiate analgesic

== ENCOUNTER → 2018-07-30 | Outpatient (CLI) | payer OTHER ==
--- NOTE | ~2018-07-30 | PAINCON ---
[address] [address] PAIN MANAGEMENT CONSULTATION Name: FLEX CORNELL [id number] Admission: 07/30/18 Attend Phys: Alise Matos MD Discharge: Date of : 51 Report #: [id number] THIS REPORT FOR: //name// CC: Alise Shelley DATE OF SERVICE: 07/30/2018 CHIEF COMPLAINT: Lumbar radicular pain in the low back area. HISTORY OF PRESENT ILLNESS: The patient is a 67-year-old female who has been followed in the pain clinic. 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 As a result of the closing of [facility], [facility] She worked there for a number of months. The department is undergoing changes. They have made quite a few changes in the staff and administration. At this point, she has elected to move to [facility]. She is going to work as a nurse. She feels that it is closer and with the tumultuous changes that are occurring in the other departments, it will be the easiest thing at this point. She feels that her medications are helpful. She has returned today for renewal of her medications. She has had no complications with their use. ALLERGIES: AVELOX. CURRENT MEDICATIONS: Aspirin 81 mg, Wellbutrin 150 mg b.i.d., calcium, vitamin D, fish oil, EpiPen injector p.r.n., Lexapro 20 mg, Mobic 15 mg, gabapentin 300 mg, hydrocodone 5/325 1 p.o. q.4-6 hours, multivitamins, Synthroid, simvastatin. PAIN CLINIC ASSESSMENT AND PQRS: 1. The patient has some nkqj-wk-uqbn pain in her right knee. She is not being treated for rheumatoid arthritis. 2. Height 5 feet 4 inches, weight 176 pounds, and BMI is 30. 3. Vital signs: Blood pressure 149/85, heart rate 74, respiratory rate 16, room air saturation 93%, temperature 98.2. 4. Pain intensity, 3-10. 5. Fall history. The patient has not fallen in the last 3 months. 6. Blood thinner. The patient is not on a blood thinning medication. 7. Hypertension. The patient is not being treated for hypertension. 8. Opiates greater than 6 weeks. The patient received medications in the pain clinic. 9. Risk assessment tool, low for opioid use. 10. Functional assessment tool. 11. Recreational drug use. The patient denies use of recreational drugs. 12. Tobacco: The patient denies use of tobacco. 13. Alcohol: The patient [place] [address] PAIN MANAGEMENT CONSULTATION Name: FLEX CORNELL Room: [facility]#: [id number] Admission: 07/30/18 Attend Phys: Alise Matos MD Discharge: Date of : 51 Report #: [id number] PHYSICAL EXAMINATION: GENERAL: The patient is a well-developed, well-nourished white female. Appears her stated age. She is alert and oriented x 3. Affect is appropriate. Speech is fluent. HEENT: Normocephalic, atraumatic. Extraocular eye muscles intact. Sclerae nonicteric. Mucous membranes are moist. NECK: Without adenopathy or JVD. HEART: Regular rate. S1, S2. LUNGS: Clear to auscultation. ABDOMEN: Nontender. Bowel sounds present. MUSCULOSKELETAL: Without significant scoliosis, kyphosis or lordosis. The patient has pain and discomfort in the right side radiating down into her back. She also has some pain on her left hip. She also has pain because of bcyi-uj-ltpd pain involving in her knee. This is the right side. IMPRESSION: 1. Lumbar radiculopathy with history of L4-L5 sensory changes. 2. Degenerative joint disease with kwlz-mh-vxph involving the right knee. 3. Chronic back pain. 4. Continued use of complex medical management to control pain. 5. Hyperlipidemia. RECOMMENDATIONS: We discussed treatment options with the patient. At this juncture, she feels her medications are working reasonably well. She is going to start her new job in the next few days. She will continue with her medications as prescribed. She feels that they are working reasonably well. She is able to engage in activities, she would not be able to without their use. 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 She is also aware that they can become less effective because of the development of tolerance. Again, the patient has watched and been aware in the news of the changes that are occurring with use of opioid medications. She feels that the medications continue to provide her with a good amount of benefit, so that she is able to be gainfully employed, have less pain and tolerate the knee pain as well as lumbar radicular discomfort she experiences. A script for her medications of hydrocodone 5/325 1 p.o. q.4-6 hours have been rewritten, a total of 90 tablets. We would like to thank you for letting us participate in her care. By: [id number]. MD NORMA Dudley
== END ==
LOC: M.PC 05:10
DX: M54.16 Radiculopathy, lumbar region (principal); G89.29 Other chronic pain; M17.11 Unilateral primary osteoarthritis, right knee; E78.5 Hyperlipidemia, unspecified; Z79.82 Long term (current) use of aspirin; Z79.899 Other long term (current) drug therapy

== ENCOUNTER → 2018-09-10 | Outpatient (CLI) | payer OTHER ==
--- NOTE | ~2018-09-10 | PAINCON ---
[address] [address] PAIN MANAGEMENT CONSULTATION Name: FLEX CORNELL Room: [facility].Haven#: [id number] Admission: 09/10/18 Attend Phys: Alsie Matos MD Discharge: Date of : 51 Report #: [id number] THIS REPORT FOR: //name// CC: Alise Shelley DATE OF SERVICE: 09/10/2018 CHIEF COMPLAINT: Here for medication management. HISTORY: The patient is a 67-year-old female who has been followed in the pain clinic. As you may recall, she has had some back problems. She has undergone epidural steroid injections in the past. She has changed jobs. 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 She feels that this change has been beneficial for her back. She is not having as much back pain. Working in an administrative position. Feels that her medications of meloxicam and hydrocodone are beneficial. She is not having any complications with their use. She has returned today with the hopes of medication. Notes that her pain is worse when she is active, walking, sitting, standing, climbing stairs, lifting and bending. Notes that use of her medications, heat and cold as well as rest are beneficial and decrease her pain. Rates her pain as a 4/10. ALLERGIES: AVELOX. CURRENT MEDICATIONS: Aspirin 81 mg, Wellbutrin 150 mg b.i.d., calcium, vitamin D, fish oil, EpiPen injector p.r.n., Lexapro 20 mg, Mobic 15 mg, gabapentin 300 mg, hydrocodone 5/325 one p.o. q. 4-6 hours, multivitamins, Synthroid, simvastatin. PAIN CLINIC ASSESSMENT/PQRS: 1. The patient has some svow-tc-btwg pain in her right knee. She is not being treated for rheumatoid arthritis. 2. Height 5 feet 5 inches, weight 174 pounds, BMI is 29. 3. Blood pressure 147/87, heart rate 71, respiratory rate 16, room air saturation is 94%, temperature 98.8. 4. Pain intensity 06/05. 5. Fall history: The patient has not fallen in the last 3 months. 6. Blood thinner. The patient is not on a blood thinning medication. 7. Hypertension. The patient is not being treated for hypertension. 8. Opioid greater than 6 weeks. The patient receives her medications from one source, pain clinic. 9. Risk assessment tool, low for opioid use. 10. Functional assessment tool. 11. Recreational drug use. The patient denies use of recreational drugs. 12. Tobacco: The [place] [address] PAIN MANAGEMENT CONSULTATION Name: FLEX CORNELL ANTELMO Room: [facility]#: [id number] Admission: 09/10/18 Attend Phys: Alise Matos MD Discharge: Date of : 52 Report #: [id number] 13. Alcohol: The patient denies use of alcoholic beverages. PHYSICAL EXAMINATION: GENERAL: The patient is a well-developed, well-nourished white female. Slightly obese. She appears her stated age. She is alert and oriented x 3. Her affect is appropriate. Speech is fluent. HEENT: Normocephalic, atraumatic. Extraocular eye muscles intact. Sclerae nonicteric. Mucous membranes are moist. NECK: Without adenopathy or JVD. HEART: Regular rate. S1, S2. LUNGS: Clear to auscultation. ABDOMEN: Nontender. Bowel sounds present. MUSCULOSKELETAL: Without significant scoliosis, kyphosis or lordosis. The patient has some pain and discomfort in the right side, which radiates down into her back. Also, some pain in her left hip. She has some ipms-gk-iryl involvement in her knee. This involves the right side. IMPRESSION: 1. Lumbar radiculopathy with history of L4-L5 sensory changes. 2. Degenerative joint disease with elna-dd-ybsn involving the right knee. 3. Chronic back pain. 4. Continued use of complex medical management to control pain. 5. Hyperlipidemia. RECOMMENDATIONS: We discussed treatment options with the patient. Risks and benefits of her medication were again reviewed. She is aware that opioid medications can be problematic in some people. She is aware that tolerance can develop over a period of time. She keeps her medication in a guarded area. She feels the medications are effective and help her to engage in activities of daily living with significantly less painful condition. She has returned today for the medications. A script for her medications meloxicam has been provided. She will take ____ p.o. daily. A total of 3-month supply has been provided. The patient will also continue with hydrocodone 5/325 one p.o. t.i.d. She will call us if she has any problems with her medications. We would like to thank you for letting us participate in her care. We will continue with the complex management of her pain using opioid medications. By: [id number]. Mynor Matos MD /CARIN
== END ==
LOC: M.PC 05:07
DX: Z76.0 Encounter for issue of repeat prescription (principal); M54.16 Radiculopathy, lumbar region; M17.11 Unilateral primary osteoarthritis, right knee; M54.9 Dorsalgia, unspecified; G89.29 Other chronic pain; E78.5 Hyperlipidemia, unspecified; Z79.82 Long term (current) use of aspirin; Z79.899 Other long term (current) drug therapy; Z79.891 Long term (current) use of opiate analgesic

== ENCOUNTER → 2018-10-10 | Outpatient (CLI) | payer OTHER ==
[~2018-10-10] MED LIST changes: +HYDROCODON-ACE1 EAC5 PO
--- NOTE | ~2018-10-10 | PAINCON ---
[address] [address] PAIN MANAGEMENT CONSULTATION Name: FLEX CORNELL Room: [facility] LAURIE Komal#: [id number] Admission: 10/10/18 Attend Phys: Alise Matos MD Discharge: Date of : 52 Report #: [id number] THIS REPORT FOR: //name// CC: Alise Shelley DATE OF SERVICE: 10/10/2018 CHIEF COMPLAINT: Here for medication. HISTORY: The patient is a 67-year-old female, who has been followed in the pain clinic. She has continued to have pain and discomfort in her back. She has undergone epidural steroid injections in the past and gleaned some benefit when it was quite problematic. At this juncture, she feels that the conservative approach using hydrocodone has been beneficial. She returns today indicating that her pain has continued to be stable. She is taking her medications as needed, generally takes ____ 3 times a day. There are some occasions where she does not feel that she needs to take the medications. At this juncture, she has been followed in the pain clinic for 2 years. She has had no problems with her medications. Things seem stable. We will start to see her on a bimonthly basis. CURRENT MEDICATIONS: Aspirin 81 mg, Wellbutrin 150 mg b.i.d., calcium, vitamin D, fish oil, EpiPen injector p.r.n., Lexapro 20 mg, Mobic 15 mg, gabapentin 300 mg, hydrocodone 5/325 one p.o. q.4-6 hours, multivitamins, Synthroid, and simvastatin. ALLERGIES: AVELOX. PAIN CLINIC ASSESSMENT AND PQRS: 1. The patient has pain with ikeh-fs-ixad pain involving her right knee. She is being treated for rheumatoid arthritis. 2. Pain intensity is 6/10. 3. Fall history: The patient has not fallen in the last 3 months. 4. Blood thinner. The patient is not on a blood thinning medication. 5. Hypertension. The patient is not being treated for hypertension. 6. Opioids greater than 6 weeks. The [facility]. 7. Risk assessment tool, low for opioid use. 8. Functional assessment tool. 9. Recreational drug use. The patient denies use of recreational drugs. 10. Tobacco: The patient denies use of tobacco. 11. Alcohol: The patient denies use of alcoholic beverages. PHYSICAL EXAMINATION PRESENT ILLNESS: GENERAL: The patient is a well-developed, well-nourished [place] [address] PAIN MANAGEMENT CONSULTATION Name: FLEX CORNELL Room: [facility].#: [id number] Admission: 10/10/18 Attend Phys: Alise Matos MD Discharge: Date of : 52 Report #: [id number] appears her stated age. She is alert and oriented x 3. Her affect is appropriate. Speech is fluent. Height is 5 feet 5 inches, weight is 178 pounds, and BMI is 30. VITAL SIGNS: Blood pressure is 138/75, heart rate is 75, respiratory rate is 16, room air saturation is 96%, and temperature is 98.2. HEENT: Normocephalic, atraumatic. Extraocular eye muscles intact. Sclerae nonicteric. Mucous membranes are moist. NECK: Without adenopathy or JVD. HEART: Regular rate. S1, S2. LUNGS: Clear to auscultation. ABDOMEN: Nontender. Bowel sounds present. MUSCULOSKELETAL: Without significant scoliosis, kyphosis, or lordosis. The patient has pain and discomfort in lower portion of her back. Also, has pain that radiates down into her back. She has some pain and discomfort in the left hip area. She has wvcy-di-ngkd involvement in her knee. The right knee is most problematic. IMPRESSION: 1. Lumbar radiculopathy, history of L4-L5 sensory changes. 2. Degenerative joint disease with zofs-um-fyzp involvement of the right knee. 3. Chronic back pain. 4. Continued use of complex medical management to control pain. 5. Hyperlipidemia. RECOMMENDATIONS: We have discussed treatment options with the patient. At this juncture, we will continue with her medications. She feels her medications are working well. She has remained gainfully employed. She has been followed in the pain clinic for about 2 years. She has not had any problems with the medication. We will continue with her medications. A script for her medications of hydrocodone 5 mg 1 p.o. t.i.d. has been written. She will continue with her medications as prescribed. The patient has been given a script for hydrocodone for 1 month and a second month of hydrocodone 10 mg 1 p.o. t.i.d. She will call us if she has any concerns. She keeps her medications in a guarded area. We will continue with her current medication regimen with a complex medical management using opioids to help control her pain. We would like to thank you for letting us to participate in her care. We hope she continues to improve. By: [id number]. Mynor Matos MD /PMT
== END ==
LOC: M.PC 04:46
DX: M54.16 Radiculopathy, lumbar region (principal); M17.11 Unilateral primary osteoarthritis, right knee; G89.29 Other chronic pain; E78.5 Hyperlipidemia, unspecified; Z79.899 Other long term (current) drug therapy

== ENCOUNTER → 2019-01-02 | Outpatient (CLI) | payer OTHER ==
--- NOTE | 2019-01-07 10:01 | PAINCON ---
[address] [address] PAIN MANAGEMENT CONSULTATION Name: FLEX CORNELL Room: [facility] LAURIE Komal#: [id number] Admission: 01/02/19 Attend Phys: Alise Matos MD Discharge: Date of : 52 Report #: [id number] THIS REPORT FOR: //name// CC: Alise Shelley MD DATE OF SERVICE: 01/02/2019 CHIEF COMPLAINT: Right knee pain. HISTORY OF PRESENT ILLNESS: The patient is a 68-year-old female, who has been followed in the pain clinic. As you may recall, she has a history of lumbar radiculopathy. She has undergone epidural steroid injections. They have proved helpful. At this point, she has been using a more conservative approach with the use of opioid medications. She does work as a nurse. Finds that these medications are beneficial. She has returned today for renewal of her medication. She has noticed an increasing amount of pain and discomfort involving her right knee. She also has pain in the low back area. They have both been nagging for a number of years. She has undergone epidural steroid injections in her back in the past. She has had injections in her knee. Feels that working on her feet, for a prolonged period of time exacerbates her discomfort, particularly in the evening. She rates her pain as a 2/10. Finds that the hydrocodone and Tylenol Extra Strength are helpful. Feels that her pain is 70%-80% improved with her current medication. She has returned today for renewal of her medication and would like to have an injection to her right knee. ALLERGIES: AVELOX. CURRENT MEDICATIONS: Aspirin 81 mg, Wellbutrin 150 mg b.i.d., calcium, vitamin D, fish oil, EpiPen injection p.r.n., Lexapro 20 mg, Mobic 15 mg, gabapentin 300 mg, hydrocodone 5/325 one p.o. q. 4-6 hours, multivitamins, Synthroid and simvastatin. PAIN CLINIC ASSESSMENT/PQRS: 1. The patient has dyty-hm-jaez pain involving her right knee. She is being treated for rheumatoid arthritis. 2. Pain intensity is 2/10. 3. Fall history: The patient has not fallen in the last 3 months. 4. Blood thinner. The patient is on a blood thinning medication. 5. Hypertension. The patient is not being treated for hypertension. 6. Opioids greater than 6 weeks. The patient received medication from [facility]. 8. Risk assessment tool: Low for opioid use. 9. [place] [address] PAIN MANAGEMENT CONSULTATION Name: FLEX CORNELL [id number] Admission: 01/02/19 Attend Phys: Alise Matos MD Discharge: Date of : 51 Report #: [id number] 10. Recreational drug use: The patient denies. 11. Tobacco: The patient denies tobacco. 12. Alcohol. The patient denies alcohol use. HISTORY OF PRESENT ILLNESS: GENERAL: The patient is a well-developed, well-nourished, white female. Appears her stated age. She is alert and oriented x 3. Her affect is appropriate. Speech is fluent. HEENT: Normocephalic, atraumatic. Extraocular eye muscles are intact. Sclerae nonicteric. Mucous membranes are moist. NECK: Without adenopathy or JVD. The patient does have some pain and discomfort in the lower portion of her back. Has pain in the right knee area. LUNGS: Clear to auscultation. ABDOMEN: Nontender. MUSCULOSKELETAL: Without significant scoliosis, kyphosis or lordosis. She does have dbpi-um-pcsb involvement in her right knee. IMPRESSION: 1. Lumbar radiculopathy with history of L4-L5 sensory changes. 2. Degenerative joint disease involving her right knee. 3. Chronic back pain. 4. Continued use of complex medical management with opioids to control pain. 5. Hyperlipidemia. RECOMMENDATIONS: We discussed treatment options with the patient. Risks and benefits of knee injection were discussed. They could include worsening of pain, no improvement in pain, bleeding, knee cartilage damage, swelling and the patient elects to proceed. PROCEDURE: The patient was taken to the procedure area. She was then assisted in getting on the examination table. She was placed in the supine position. Her right knee was sterilely prepped with a Betadine solution and allowed to dry. This area was then appropriately dressed with a sterile drape. Lidocaine 0.25% was injected. This was with a 25-gauge needle, after this area had been anesthetized and sprayed with ethylene chloride to numb the skin. Aspiration was negative. A total of 40 mg triamcinolone and 4 mL of 0.5% bupivacaine was injected. The patient noticed an improvement in her pain. She remained in the pain clinic for an appropriate amount of time. She will call us if she has any concerns. Should she note some infection-type symptoms, she will contact the pain clinic or seek medical help [place] [address] PAIN MANAGEMENT CONSULTATION Name: FLEX CORNELL Room: [facility]#: [id number] Admission: 01/02/19 Attend Phys: Alise Matos MD Discharge: Date of : 52 Report #: [id number] We would like to thank you for letting us participate in her care. We hope she continues to improve. <ELECTRONICALLY SIGNED> By: Alise Matos MD 01/07/19 [id number]. Mynor Matos MD /nt
== END | disposition home or self-care (01) ==
LOC: M.PC 12-05 08:00
DX: M25.561 Pain in right knee (principal); M17.11 Unilateral primary osteoarthritis, right knee; M54.16 Radiculopathy, lumbar region; G89.29 Other chronic pain; E78.5 Hyperlipidemia, unspecified; Z98.890 Other specified postprocedural states; Z79.891 Long term (current) use of opiate analgesic; Z88.8 Allergy status to other drugs, medicaments and biological substances; Z79.899 Other long term (current) drug therapy; Z79.82 Long term (current) use of aspirin

== ENCOUNTER → 2019-02-27 | Outpatient (CLI) | payer OTHER ==
--- NOTE | ~2019-02-27 | PAINCON ---
[address] [address] PAIN MANAGEMENT CONSULTATION Name: FLEX CORNELL Room: [facility] Sauceda#: [id number] Admission: 02/27/19 Attend Phys: Alise Matos MD Discharge: Date of : 52 Report #: [id number] THIS REPORT FOR: //name// CC: Alise Shelley MD DATE OF SERVICE: 02/27/2019 CHIEF COMPLAINT: Low back pain and right knee pain. HISTORY: The patient is a 68-year-old female, who has been followed in the pain clinic because of chronic pain. She has pain in the low back area. In the past, she has undergone epidural steroid injections and does get injections from time to time. Overall, she feels that her pain medications are working reasonably well. Rates her pain as 2/10 at this point. She uses the hydrocodone medication to help with the pain. Also, uses Tylenol on a p.r.n. basis. Notes that since the weather has changed, she has noted increased discomfort with walking, sitting, standing, climbing stairs, bending, and lifting. She has been more active at work. They have had a decrease in help. This is required that she do more standing on her feet. This is exacerbated somewhat the right knee pain that she has had. Did note some improvement after the last right knee injection. It was not as much pain as she would hope for. There were no complications. She has returned today for renewal of her medications. ALLERGIES: AVELOX. CURRENT MEDICATIONS: Aspirin 81 mg, Wellbutrin 150 mg b.i.d., calcium, vitamin D, fish oil, EpiPen injection p.r.n., Lexapro 20 mg, Mobic 15 mg, gabapentin 300 mg, hydrocodone 5/325 one p.o. q.4-6 hours, multivitamins, Synthroid, simvastatin. PAIN CLINIC ASSESSMENT/PQRS: 1. The patient has ixhy-gc-maot pain involving her right knee. She is being treated for rheumatoid arthritis. 2. Fall history: The patient has not fallen in the last 3 months. 2. Blood thinner. The patient is not on a blood thinning medication. 3. Hypertension. The patient is not being treated for hypertension. 4. Opiates greater than 6 weeks. The [facility]. 5. Risk assessment tool, low for opioid use. 6. Functional assessment tool. 7. Recreational drug use: The patient denies. 8. Tobacco: The patient denies. 9. Alcohol: [place] [address] PAIN MANAGEMENT CONSULTATION Name: JIMMYEUGENEFLEX [facility] [id number] Admission: 02/27/19 Attend Phys: Alise Matos MD Discharge: Date of : 52 Report #: [id number] PHYSICAL EXAMINATION: GENERAL: The patient is a well-developed, well-nourished white female. Appears her stated age. She is alert and oriented x 3. Her affect is appropriate. Speech is fluent. HEENT: Normocephalic, atraumatic. Extraocular eye muscles intact. Sclerae nonicteric. Mucous membranes are moist. NECK: Without adenopathy or JVD. The patient has some discomfort in lower portion of her back. Has some increased pain in the right knee. It has improved since the last injection. LUNGS: Clear to auscultation. ABDOMEN: Nontender. MUSCULOSKELETAL: Without significant scoliosis, kyphosis, or lordosis. The patient does have jbrz-ql-xmhz involvement of her right knee. IMPRESSION: 1. Lumbar radiculopathy with history of L4-L5 sensory changes. 2. Degenerative joint disease involving her right knee. 3. Chronic back pain. 4. Continued use of opioids to help control the complex pain involving her knee. 5. Hyperlipidemia. RECOMMENDATIONS: We discussed treatment options with the patient. Risks and benefits of opioid medications have been reviewed. The patient is aware that opioid medications can become less effective over time. One can develop the tolerance. She feels her medications are helpful. Did undergo an injection in her right knee. Did note some improvement, but with ssez-vv-vusm pain, her pain continues to be somewhat problematic. A script for her medications of hydrocodone has been rewritten. She will continue with hydrocodone 5/325 one p.o. q.4-6 hours, total of 90 tablets have been provided. She has been given medications for the next 2 months. She will call us if she has any concerns. We would like to thank you for letting us participate in her care. We hope she continues to improve. By: [id number]. Mynor Matos MD /nt
== END ==
LOC: M.PC 08:20
DX: M54.16 Radiculopathy, lumbar region (principal); M17.11 Unilateral primary osteoarthritis, right knee; E78.5 Hyperlipidemia, unspecified; Z79.899 Other long term (current) drug therapy

== ENCOUNTER → 2019-04-24 | Outpatient (CLI) | payer OTHER ==
--- NOTE | 2019-05-13 09:57 | PAINCON ---
[address] [address] PAIN MANAGEMENT CONSULTATION Name: JIMMYEUGENEFLEX Room: [facility]#: [id number] Admission: 04/24/19 Attend Phys: Alise Matos MD Discharge: Date of : 52 Report #: [id number] THIS REPORT FOR: //name// cc: Leni Shelley MD, Tuongvan T. MD ~ THIS REPORT FOR: //name// CC: Alise Shelley MD DATE OF SERVICE: 04/24/2019 CHIEF COMPLAINT: Low back and knee pain. HISTORY: The patient is a 68-year-old female who has been followed in the pain clinic. She has pain in her low back area. She has undergone epidural steroid injections in the past. They have been helpful at this juncture. She likes using medications to help control the pain. She has found that meloxicam is helpful. Orange can be beneficial as well. She notes that the pain is worse when she is walking, sitting, standing, climbing stairs, lifting and bending. Does have knee problems and has had her knees injected in the past. She rates her pain as a 4/10. Has noted some increase in pain because of changes in the weather. It has gotten much colder. She has returned today with hopes of having her medications refilled. She continues to work as a nurse. ALLERGIES: AVELOX. CURRENT MEDICATIONS: Aspirin 81 mg, Wellbutrin 150 mg b.i.d., calcium, vitamin D, fish oil, EpiPen injection p.r.n., Lexapro 20 mg, Mobic 15 mg, gabapentin 300 mg, hydrocodone 5/325 one p.o. every 4-6 hours, multivitamins, Synthroid and simvastatin. 7 PAIN CLINIC ASSESSMENT AND PQRS: 1. The patient does have some cqgq-bk-yklx pain involving her right knee. She is being treated for rheumatoid arthritis. 2. Height 5 feet 4 inches, weight 169 pounds, BMI is 29.3. 3. Vital Signs: Blood pressure 134/82, heart rate 75, respiratory rate 16, room air saturation is 94% and temperature 98.4. 4. Pain intensity 06/05. 5. Fall history: The patient has not fallen in the last 3 months. 6. Blood thinner. The patient is not on a blood-thinning medication. 7. Alcohol. The patient denies use of alcoholic beverages. PHYSICAL EXAMINATION: GENERAL: The patient is a well-developed, well-[place] [address] PAIN MANAGEMENT CONSULTATION Name: FLEX CORNELL Room: [facility]#: [id number] Admission: 04/24/19 Attend Phys: Alise Matos MD Discharge: Date of : 52 Report #: [id number] her stated age. She is alert and oriented x 3. Her affect is appropriate. Speech is fluent. HEENT: Normocephalic, atraumatic. Extraocular eye muscles intact. Sclerae nonicteric. Mucous membranes are moist. NECK: Without adenopathy or JVD. The patient does have some increased right knee pain. LUNGS: Clear to auscultation. ABDOMEN: Nontender. MUSCULOSKELETAL: Without significant scoliosis, kyphosis or lordosis. The patient does have ozdh-rf-atbc involvement of her right knee. IMPRESSION: 1. Lumbar radiculopathy with history of L4-L5 sensory changes and radiculopathy. 2. Degenerative joint disease involving the right knee. 3. Chronic back pain. 4. Continued use of opioids to help control the complex pain involving her knee. 5. Hyperlipidemia. RECOMMENDATIONS: We discussed treatment options with the patient. At this juncture, we will continue with her medications. She feels that the Orange medication continues to be efficacious. She also finds that the Etodolac 400 mg 1 p.o. b.i.d. can be helpful. She stopped taking that medication. She feels that meloxicam seems to be better tolerated. She rates her pain as a 60-70% improvement with use of her medications. Keeps her medications in a guarded area. She is aware that opioid medications can become less effective as the time goes on. She is not having any problems with mentating. Her sensorium remains clear. We have rewritten a script for her medications, Orange 5 mg one p.o. every 4-6 hours. She will also continue with meloxicam 15 mg 1 p.o. daily. She will stop taking the meloxicam should she notes some GI discomfort. We would like to thank you for letting us participate in her care. We hope she continues to improve. <ELECTRONICALLY SIGNED> By: Alise Matos MD 05/13/19 0957 [id number]. Mynor Matos MD /solitario
== END ==
LOC: M.PC 02:12
DX: M54.16 Radiculopathy, lumbar region (principal); M17.11 Unilateral primary osteoarthritis, right knee; E78.5 Hyperlipidemia, unspecified; Z79.891 Long term (current) use of opiate analgesic

== ENCOUNTER → 2019-08-19 | Outpatient (CLI) | payer OTHER ==
--- NOTE | 2019-09-04 15:59 | PAINCON ---
[address] [address] PAIN MANAGEMENT CONSULTATION Name: JIMMYEUGENEFLEX A Room: [facility]#: [id number] Admission: 08/19/19 Attend Phys: Alise Matos MD Discharge: Date of : 52 Report #: [id number] THIS REPORT FOR: //name// cc: Leni Shelley MD, Tuongvan T. MD ~ THIS REPORT FOR: //name// CC: Alise Shelley MD DATE OF SERVICE: 08/19/2019 CHIEF COMPLAINT: Here for medication renewal. HISTORY: The patient is a 68-year-old female followed in the Pain Clinic. She has a history of low back and right knee pain. This has been problematic for a number of years. She rates her pain today as 5-6. It is exacerbated with prolonged walking on the floors. As you may recall, she is a nurse. Sitting and standing, bending, and lifting can all be problematic. Notes that her pain improves with the use of her medications. She has cold packs. She finds that rest is helpful as well. She has returned today for renewal of her medications. She has had to work a bit longer at her job. She finds that her medications of meloxicam and [place] are helpful. She has returned today for renewal of her medications. ALLERGIES: AVELOX. CURRENT MEDICATIONS: Aspirin 81 mg, Wellbutrin 150 mg b.i.d., calcium, vitamin D, fish oil, EpiPen injection p.r.n., Lexapro 20 mg, Mobic, gabapentin 300 mg, hydrocodone 5/325 one p.o. every 4-6 hours, multivitamins, Synthroid, and simvastatin. PAIN CLINIC ASSESSMENT/PQRS: 1. The patient has some olyc-wl-rrje involvement in her knee. She is being treated for rheumatoid arthritis. 2. Height 5 feet 4 inches, weight 160 pounds, BMI is 28. 3. Vital signs: Blood pressure 145/98, heart rate 74, respiratory rate 16, room air saturation 95%, temperature 98.3. 4. Pain intensity 5-6/10. 5. Fall history: The patient has not fallen in the last 3 months. 6. Blood thinner. The patient is not on a blood thinning medication. 7. Hypertension. The patient is not being treated for hypertension. 8. Opioids. The patient received medication from the Pain Clinic. 9. Risk assessment tool, low for opioid use. 10. Functional [place] [address] PAIN MANAGEMENT CONSULTATION Name: FLEX CORNELL Room: [facility]#: [id number] Admission: 08/19/19 Attend Phys: Alise Matos MD Discharge: Date of : 52 Report #: [id number] 11. Recreational drug use. The patient denies. 12. Tobacco: The patient denies. 13. Alcohol. The patient denies use of alcoholic beverages on a regular basis. PHYSICAL EXAMINATION: GENERAL: The patient is a well-developed, well-nourished white female. Appears her stated age. She is alert and oriented x 3. Her affect is appropriate. Speech is fluent. The patient is wearing a mask. NECK: Without adenopathy or JVD. ABDOMEN: Nontender. The patient has discomfort in the right knee. MUSCULOSKELETAL: The patient is without significant scoliosis, kyphosis or lordosis. Does have oixy-sh-hfmz pain in her right knee. IMPRESSION: 1. Lumbar radiculopathy history, L4-L5 sensory changes with radiculopathy. 2. Uqxl-tr-uwnd involvement of the right knee. 3. Chronic back pain. 4. Continue use of opioids to help control the complex pain involving her knee. 5. Hypertension. 6. Hyperlipidemia. RECOMMENDATIONS: We discussed treatment options with the patient. At this juncture, she feels her medications are working well. There have been no problems. She does not have any problems with her mentation. She is able to think clearly. 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 She would like to continue with her medication. She feels that the abscess that she had in the past month has improved. She has returned today for renewal of her medication. A script for her medications have been provided. The patient will continue with hydrocodone 5 one p.o. q. 4-6 hours p.r.n., total of 90 tablets have been dispensed for each month. She will also continue with meloxicam and note its effect on her GI tract. Should she notice any problems with her GI system, she will stop the Meloxicam and note whether it is the cause. She will call us if she has any concerns. We would like to thank you for letting us participate in her care. We hope she continues to improve. <ELECTRONICALLY SIGNED> By: Alise Matos MD 09/04/19 1559 [id number]. Mynor Matos MD /nt
== END ==
LOC: M.PC 04:37
PROVIDERS: ATTEND Anesthesiology Pain Medicine
DX: M89.8X8 Other specified disorders of bone, other site (principal); M54.5 Low back pain; I10 Essential (primary) hypertension; E78.5 Hyperlipidemia, unspecified; F11.20 Opioid dependence, uncomplicated; Z87.39 Personal history of other diseases of the musculoskeletal system and connective tissue; Z79.899 Other long term (current) drug therapy

== ENCOUNTER → 2019-10-14 | Outpatient (CLI) | payer OTHER ==
--- NOTE | ~2019-10-14 | PAINCON ---
[address] [address] PAIN MANAGEMENT CONSULTATION Name: FLEX CORNELL Room: [facility]#: [id number] Admission: 10/14/19 Attend Phys: Alise Matos MD Discharge: Date of : 52 Report #: [id number] THIS REPORT FOR: //name// cc: Leni Shelley MD, Tuongvan T. MD ~ THIS REPORT FOR: //name// CC: Alise Shelley DATE OF SERVICE: 10/14/2019 CHIEF COMPLAINT: "Having more pain in my low back and in my right knee." HISTORY: The patient is a 68-year-old female who has been followed in the pain clinic because of chronic pain. She has had lumbar radicular pain. She also has right chronic knee pain. These have been ongoing for a number of years. 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 When she is working on the floor and must do quite a bit of walking she notes exacerbation of her pain. She is wearing a right knee brace. She rates her pain as an 8/10 today because of the increased activity of walking. Standing, climbing stairs, and other activities of daily living can be problematic as well. She would like to continue with her medications of meloxicam and Leupp. She has returned today for renewal of them. ALLERGIES: AVELOX. CURRENT MEDICATIONS: Aspirin 81 mg, Wellbutrin 150 mg b.i.d., calcium, vitamin D, fish oil, EpiPen injection p.r.n., Lexapro 20 mg, Mobic 15 mg, gabapentin 300 mg, hydrocodone 5/325 every 4 - 6 hours, multivitamins, Synthroid, and simvastatin. PAIN CLINIC ASSESSMENT AND PQRS: 1. The patient has some mgzr-jd-ewav involvement in her right knee. She is being treated for rheumatoid arthritis. 2. Height 5 feet 4 inches, weight 156 pounds, BMI is 27.2. 3. Vital Signs: Blood pressure 140/105, heart rate 83, respiratory rate 18, room air saturation 97%, temperature is 99.7. 4. Pain intensity 8/10. 5. Fall history: The patient has not fallen in the last 3 months. 6. Blood thinner. The patient is not on a blood thinning medication. 7. Hypertension. The patient is not being treated for hypertension. 8. Opioids greater than 6 weeks. The patient received medication from the pain clinic. 9. Risk assessment tool, low for opioid use. 10. Functional assessment tool, [place] [address] PAIN MANAGEMENT CONSULTATION Name: FLEX CORNELL Room: [facility]#: [id number] Admission: 10/14/19 Attend Phys: Alise Matos MD Discharge: Date of : 52 Report #: [id number] 11. Recreational drug use. The patient denies. 12. Tobacco: The patient denies. 13. Alcohol. The patient denies use of alcoholic beverages on a regular basis. PHYSICAL EXAMINATION: GENERAL: The patient is a well-developed, well-nourished white female. Appears her stated age. She is alert and oriented x 3. Her affect is appropriate. Speech is fluent. HEENT: Normocephalic, atraumatic. Extraocular eye muscles intact. Sclerae nonicteric. Mucous membranes are moist. The patient is wearing a mask. NECK: Without adenopathy or JVD. HEART: Regular rate. ABDOMEN: Nontender. LUNGS: Clear. EXTREMITIES: The patient is wearing a brace on her right knee. She has decreased range of motion, walks with an antalgic gait. The patient without significant scoliosis, kyphosis or lordosis. IMPRESSION: 1. Lumbar radiculopathy, L4-L5 sensory changes in the past. 2. Ybnc-wp-ftnn involvement of the right knee. 3. Chronic back pain. 4. Continued use of opioids to help control back pain as well as knee pain. 5. Hypertension. 6. Hyperlipidemia. RECOMMENDATIONS: We discussed treatment options with the patient. At this juncture, we will continue with her medications. A script has been provided and sent to her pharmacy. She will continue with meloxicam 15 mg daily. She will continue to monitor her GI tract for nonsteroidal irritation of her GI tract. The patient will also continue with Leupp 5 mg 1 p.o. every 4 - 6 hours p.r.n. pain. She is aware that the opioid medications can become less effective as time goes on because of tolerance. She continues to work as a nurse. She notes that her pain is more problematic when she is working "on the floor." It is less problematic when she is working in an office. Hopefully, she will be able to rest her knee more. A script for her medications have been sent to her pharmacy. A script for Leupp 5 mg one p.o. every 4 - 6 hours have been provided, a total of 90 tablets have been sent. By: [id number]. Mynor Matos MD /nt
== END ==
LOC: M.PC 08:20
PROVIDERS: ATTEND Anesthesiology Pain Medicine
DX: M54.16 Radiculopathy, lumbar region (principal); G89.29 Other chronic pain; M54.9 Dorsalgia, unspecified; I10 Essential (primary) hypertension; E78.5 Hyperlipidemia, unspecified; F11.90 Opioid use, unspecified, uncomplicated

== ENCOUNTER 2019-11-23 13:48 | Emergency (ER) | payer OTHER ==
[~2019-11-23] VITALS: Ht 162.6 cm; Wt 74.8 kg
[2019-11-23] MEDS ORDERED: DOXYCYCLINE 10100 M2 PO (14:46)
[2019-11-23] MEDS ORDERED: PROVENTIL HFA6.7 G1 INH (14:50)
[2019-11-23 15:17] VITALS: BP 130/85
--- NOTE | 2019-11-24 14:19 | EKG ---
[place] [address] ELECTROCARDIOGRAM REPORT Name: FLEX CORNELL Room: [facility]#: [id number] Admission: 11/23/19 Attend Phys: Discharge: 11/23/19 Date of : 52 Date of Service: 11/23/19 1421 Report #: [id number] THIS REPORT FOR: //name// [facility] ED Test Date: 2019-11-23 Test Time: 14:21:19 Pat Name: FLEX CORNELL Department: Room: Gender: F [employer]: : 1950 Requested By: Nat Sellers Order Number: [id number] MD: Steven Red Measurements Intervals [place] Rate: 73 P: 24 MD: 125 QRS: 55 QRSD: 101 T: 14 QT: 449 QTc: 495 Interpretive Statements Sinus rhythm Borderline prolonged QT interval Compared to ECG 03/29/2016 11:38:22 T-wave abnormality no longer present Electronically Signed On 11-24-2019 14:18:51 CDT by Steven Red [email or web address] <ELECTRONICALLY SIGNED> By: Steven Red MD, [facility] 11/24/19 1418 1421 1421 Steven Red MD, [facility] /EPI
== END 2019-11-23 15:17 | disposition home or self-care (01) ==
LOC: M.ERS 13:48
DX: J22 Unspecified acute lower respiratory infection (principal); E78.00 Pure hypercholesterolemia, unspecified; F32.9 Major depressive disorder, single episode, unspecified; Z20.828 Contact with and (suspected) exposure to other viral communicable diseases; Z90.710 Acquired absence of both cervix and uterus; Z88.1 Allergy status to other antibiotic agents

== ENCOUNTER → 2019-12-09 | Outpatient (CLI) | payer OTHER ==
[~2019-12-09] MED LIST changes: +DOXYCYCLINE 10100 M2 PO; +PROVENTIL HFA6.7 G1 INH; +TIZANIDINE HCL2 M1 PO
--- NOTE | 2019-12-24 15:45 | PAINCON ---
[address] [address] PAIN MANAGEMENT CONSULTATION Name: FLEX CORNELL Room: [facility]#: [id number] Admission: 12/09/19 Attend Phys: Alise Matos MD Discharge: Date of : 52 Report #: [id number] THIS REPORT FOR: //name// cc: Leni Shelley MD, Tuongvan T. MD ~ CC: Alise Shelley DATE OF SERVICE: 12/09/2019 CHIEF COMPLAINT: Low back pain. HISTORY: The patient is a 68-year-old female who has been followed in the pain clinic because of chronic pain. She has both low back pain as well as right knee pain. She has had this ongoing pain for a number of years. She continues to work as a nurse. She has had no significant changes since we saw her last. She feels that overall her low back pain has become more problematic and is getting worse. Walking, sitting, standing, climbing stairs can be problematic. She states that she had been on a rotation where she was not quite as physically active. Now that she is more active, she has noticed a worsening and more discomfort. ALLERGIES: AVELOX. CURRENT MEDICATIONS: Aspirin 81 mg, Wellbutrin 150 mg b.i.d., calcium, vitamin D, fish oil, EpiPen, Lexapro 20 mg, Mobic 15 mg, gabapentin 300 mg, hydrocodone 5/325 q. 4-6 hours p.r.n., multivitamins, Synthroid, and simvastatin. PAIN CLINIC ASSESSMENT/PQRS: 1. The patient has bcot-qw-bslc involvement in her right knee. She is being treated for rheumatoid arthritis. 2. Height 5 feet 4 inches, weight 159 pounds, BMI is 28. 3. Vital signs: Blood pressure 153/88, heart rate 76, respiratory rate 16, room air saturation 96% 4. Pain intensity 7-8/10. 5. Fall history: The patient has not fallen in the last 3 months. 6. Blood thinner: The patient is not on a blood thinning medication. 7. Hypertension: The patient is not being treated for hypertension. 8. Opioids greater than 6 weeks: The patient [facility] medication [facility]. 9. Risk assessment tool: Low for opioid use. 10. Functional assessment tool: Reviewed. 11. Recreational drug use: The patient denies. 12. Tobacco: The patient denies. 13. Alcohol: The patient denies use of alcoholic beverages [place] [address] PAIN MANAGEMENT CONSULTATION Name: JIMMYEUGENEFLEX A Room: [facility]#: [id number] Admission: 12/09/19 Attend Phys: Alise Matos MD Discharge: Date of : 52 Report #: [id number] PHYSICAL EXAMINATION: GENERAL: The patient is a well-developed, well-nourished white female. Appears her stated age. She is alert and oriented x 3. Her affect is appropriate. Speech is fluent. HEENT: Normocephalic, atraumatic. Extraocular eye muscles intact. Sclerae nonicteric. The patient is wearing facial covering. NECK: The patient is without JVD or adenopathy. HEART: Regular rate. ABDOMEN: Nontender. LUNGS: Generally clear. EXTREMITIES: Upper extremity muscle strength judged to be 5-/5 for the major muscle groups in the upper extremity. The patient is wearing a brace on her right knee on the lower extremity. The patient without significant scoliosis, kyphosis or lordosis. IMPRESSION: 1. Lumbar radiculopathy history, L4-L5 with sensory changes in the past. 2. Zuzb-mz-viar involvement of the right knee. 3. Chronic back pain. 4. Continued use of opioids to help control back pain as well as knee pain. 5. Hypertension. 6. Hyperlipidemia. RECOMMENDATIONS: We discussed the use of opioid medications. The patient feels these medications are helpful. She was able to remain gainfully employed. She is able to think clearly. 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 She will continue with the medications. A script for hydrocodone pain have been provided for the next 2 months. The patient will also monitor GI tract in regards to use of meloxicam. She will also use the tizanidine muscle relaxant as needed. We would like to thank you for letting us participate in her care. We hope she continues to improve. <ELECTRONICALLY SIGNED> By: Alise Matos MD 12/24/19 1545 [id number]. Mynor Matos MD /CARIN
== END ==
LOC: M.PC 07:49
PROVIDERS: ATTEND Anesthesiology Pain Medicine
DX: G89.29 Other chronic pain (principal); M54.5 Low back pain; M25.861 Other specified joint disorders, right knee; I10 Essential (primary) hypertension; E78.5 Hyperlipidemia, unspecified; Z68.28 Body mass index [BMI] 28.0-28.9, adult; Z98.890 Other specified postprocedural states; Z88.8 Allergy status to other drugs, medicaments and biological substances; Z79.891 Long term (current) use of opiate analgesic; Z79.899 Other long term (current) drug therapy

== ENCOUNTER → 2020-02-03 | Outpatient (CLI) | payer OTHER ==
[~2020-02-03] MED LIST changes: +HYDROCODONE-AP1 EA11 PO
== END ==
LOC: M.PC 08:20
PROVIDERS: ATTEND Anesthesiology Pain Medicine
DX: M25.561 Pain in right knee (principal); M54.5 Low back pain; G89.29 Other chronic pain; E78.5 Hyperlipidemia, unspecified; I10 Essential (primary) hypertension; F11.20 Opioid dependence, uncomplicated; F17.200 Nicotine dependence, unspecified, uncomplicated; Z87.39 Personal history of other diseases of the musculoskeletal system and connective tissue

== ENCOUNTER → 2020-03-30 | Outpatient (CLI) | payer OTHER | LOC: M.PC 07:50 | PROVIDERS: ATTEND Anesthesiology Pain Medicine | DX: M54.16 Radiculopathy, lumbar region (principal); M25.561 Pain in right knee; I10 Essential (primary) hypertension; E78.5 Hyperlipidemia, unspecified; F11.20 Opioid dependence, uncomplicated; G89.29 Other chronic pain; M89.9 Disorder of bone, unspecified; Z88.8 Allergy status to other drugs, medicaments and biological substances; Z79.899 Other long term (current) drug therapy ==

== ENCOUNTER → 2020-05-25 | Outpatient (CLI) | payer OTHER | LOC: M.PC 07:51 | PROVIDERS: ATTEND Anesthesiology Pain Medicine | DX: M54.16 Radiculopathy, lumbar region (principal); I10 Essential (primary) hypertension; E78.5 Hyperlipidemia, unspecified; M54.9 Dorsalgia, unspecified; E78.00 Pure hypercholesterolemia, unspecified; F32.9 Major depressive disorder, single episode, unspecified ==

== ENCOUNTER → 2020-07-22 | Outpatient (CLI) | payer OTHER | LOC: M.PC 07-20 08:50 | PROVIDERS: ATTEND Anesthesiology Pain Medicine | DX: M54.16 Radiculopathy, lumbar region (principal); G89.29 Other chronic pain; M54.5 Low back pain; I10 Essential (primary) hypertension; E78.5 Hyperlipidemia, unspecified; Z79.891 Long term (current) use of opiate analgesic ==

== ENCOUNTER → 2020-09-16 | Outpatient (CLI) | payer OTHER | LOC: M.PC 07:57 | PROVIDERS: ATTEND Anesthesiology Pain Medicine | DX: M54.16 Radiculopathy, lumbar region (principal); G89.29 Other chronic pain; M54.9 Dorsalgia, unspecified; I10 Essential (primary) hypertension; E78.5 Hyperlipidemia, unspecified; Z79.891 Long term (current) use of opiate analgesic; Z79.82 Long term (current) use of aspirin; Z79.899 Other long term (current) drug therapy ==

== ENCOUNTER → 2020-11-11 | Outpatient (CLI) | payer OTHER | LOC: M.PC 08:00 | PROVIDERS: ATTEND Anesthesiology Pain Medicine | DX: G89.29 Other chronic pain (principal); M25.561 Pain in right knee; M54.16 Radiculopathy, lumbar region; I10 Essential (primary) hypertension; E78.5 Hyperlipidemia, unspecified; Z90.710 Acquired absence of both cervix and uterus; Z88.8 Allergy status to other drugs, medicaments and biological substances; Z79.82 Long term (current) use of aspirin; Z79.899 Other long term (current) drug therapy ==

== ENCOUNTER → 2021-01-11 | Outpatient (CLI) | payer OTHER | LOC: M.PC 08:04 | PROVIDERS: ATTEND Anesthesiology Pain Medicine | DX: M54.16 Radiculopathy, lumbar region (principal); M25.561 Pain in right knee; E78.5 Hyperlipidemia, unspecified; Z90.710 Acquired absence of both cervix and uterus; Z88.8 Allergy status to other drugs, medicaments and biological substances; Z79.82 Long term (current) use of aspirin; Z79.899 Other long term (current) drug therapy ==

== ENCOUNTER → 2021-03-08 | Outpatient (CLI) | payer OTHER | LOC: M.PC 07:41 | PROVIDERS: ATTEND Anesthesiology Pain Medicine | DX: M54.16 Radiculopathy, lumbar region (principal); M25.561 Pain in right knee; G89.29 Other chronic pain; I10 Essential (primary) hypertension; E78.5 Hyperlipidemia, unspecified; F17.200 Nicotine dependence, unspecified, uncomplicated; Z90.710 Acquired absence of both cervix and uterus; Z88.8 Allergy status to other drugs, medicaments and biological substances; Z79.82 Long term (current) use of aspirin; Z79.899 Other long term (current) drug therapy ==